=== PATIENT | female | born 1930 | race Two or more races ===

== ENCOUNTER 2016-10-28 11:59 | Inpatient (IN) | payer MEDICARE, OTHER ==
[~2016-10-28] VITALS: Ht 170.2 cm; Wt 88.5 kg
[~2016-10-28 11:59] MED LIST: DIGOXIN0.125 MG/2 ORAL; DILTIAZEM 24HR240 MG PO; HYDROCHLOROTHIA50 MG ORAL; IBUPROFEN400 MG ORAL; ISOSORBIDE DINI10 M1 PO; LEVOTHYROXINE100 MCG ORAL; OCUVITE1 EA ORAL; POTASSIUM CHLOR8 ME3 PO; PROCHLORPERAZINE5 MG ORAL; XANAX0.25 MG ORAL; XARELTO10 MG ORAL
[2016-10-28] MEDS ORDERED: cefTRIAXone 2 GM in NS 110 ML IVPB ONE (12:30)
[2016-10-28 12:40] VITALS: BP 174/64
[2016-10-28] MEDS ORDERED: Tubing IV Cassette IV ONE (13:01)
[2016-10-28] MEDS ORDERED: NS 0 ML IV ONE (13:01)
[2016-10-28] MEDS ORDERED: NS 110 ML ONE (13:04)
[2016-10-28 13:12] LABS: BASOPHILS % (AUTO) 0.8 % (0.0-2.0); EOSINOPHILS % (AUTO) 2.3 % (0.0-3.0); LYMPHOCYTES % (AUTO) 19.5 % (20.0-45.0); MEAN CORPUSCULAR HEMOGLOBIN 30.9 PG (27.0-31.0); MEAN CORPUSCULAR VOLUME 94 FL (80-99); MEAN PLATELET VOLUME 5.4 FL (6.5-10.1); MONOCYTES % (AUTO) 5.5 % (1.0-10.0); NEUTROPHILS % (AUTO) 71.9 % (45.0-75.0); PLATELET COUNT 400 K/UL (150-450); RED BLOOD COUNT 4.28 M/UL (4.20-5.40); WHITE BLOOD COUNT 8.4 K/UL (4.8-10.8)
[2016-10-28 13:23] LABS: PROTHROMBIN TIME 10.5 SEC (9.30-11.50)
[2016-10-28 13:27] LABS: ALANINE AMINOTRANSFERASE 13 U/L (3-33); ALBUMIN/GLOBULIN RATIO 1.1 (1.0-2.7); ANION GAP 18 (5-15); ASPARTATE AMINO TRANSFERASE 15 U/L (5-40); CALCIUM 9.3 mg/dL (8.6-10.2); CARBON DIOXIDE 22 mEQ/L (20-30); CHLORIDE 98 mEQ/L (98-107); CREATININE 1.1 mg/dL (0.5-0.9); HEMOLYSIS 3; POTASSIUM 4.1 mEQ/L (3.4-4.9); SODIUM 138 mEQ/L (135-145); TOTAL PROTEIN 8.2 g/dL (6.6-8.7); TROPONIN I < 0.30 ng/mL (<=0.30)
[2016-10-28 13:38] LABS: CKMB 10.4 ng/mL (< 3.8)
[2016-10-28] MEDS ORDERED: AMLODIPINE BESY10 MG ORAL (13:40)
[2016-10-28] MEDS ORDERED: FAMOTIDINE20 MG ORAL (13:40)
[2016-10-28] MEDS ORDERED: ATENOLOL25 MG ORAL (13:40)
[2016-10-28] MEDS ORDERED: FAMOTIDINE40 MG ORAL (13:40)
[2016-10-28] MEDS ORDERED: TRAMADOL HCL50 MG ORAL (13:40)
[2016-10-28] MEDS ORDERED: LORAZEPAM0.5 MG ORAL (13:40)
[2016-10-28] MEDS ORDERED: MECLIZINE HCL25 MG ORAL (13:40)
[2016-10-28] MEDS ORDERED: LASIX40 MG ORAL (13:40)
[2016-10-28] MEDS ORDERED: OCUVITE TABLET1 EAC1 ORAL (13:40)
[2016-10-28 13:45] VITALS: BP 160/67
--- NOTE | 2016-10-28 13:57 | Emergency Room Report ---
History of Present Illness General Chief Complaint: Vaginal Source: Family Member Present Illness HPI Patient is an 86-year-old female presented after increased vaginal discharge and bleeding. Patient gradual onset of symptoms over the past several weeks. The patient noted have increased foul smell. She had been noted to have small amount of bleeding. Patient had been taking Xarelto. She had not seen her primary care physician. Patient reportedly lives in a senior apartment. She is having some moderate difficulty breathing. Has reportedly intermittently takes digoxin. Allergies: Coded Allergies: No Known Allergies (Unverified , 07/21/15) Patient History Past Medical History: see triage record Reviewed Nursing Documentation: PMH: Agreed, PSxH: Agreed Nursing Documentation-PMH Past Medical History: No History, Except For Hx Cardiac Problems: No Hx Hypertension: Yes Hx Cancer: No Hx Gastrointestinal Problems: No Review of Systems All Other Systems: negative except mentioned in HPI Physical Exam Vital Signs Date Time Temp Pulse Resp B/P Pulse Ox O2 Delivery O2 Flow Rate FiO2 10/28/16 12:12 98.1 76 16 175/69 92 Room Air Sp02 EP Interpretation: reviewed, normal General Appearance: alert, GCS 15, moderate distress Head: atraumatic ENT: normal ENT inspection, hearing grossly normal, normal voice Neck: normal inspection, full range of motion, supple, no bony tend Respiratory: normal inspection, no wheezing, other - crackles bilateral bases Cardiovascular #1: regular rate, rhythm, no edema Gastrointestinal: normal inspection, normal bowel sounds, non tender, soft, no guarding, no hernia Genitourinary: other - marked foul smelling discharge, small vulvar lesion noted vulvar erythema Musculoskeletal: normal inspection, back normal, normal range of motion Neurologic: normal inspection, alert, responsive, speech normal Psychiatric: normal inspection, judgement/insight normal, mood/affect normal Skin: other - vulvar slight discharge, small pustular lesion near mons less than 1 cm Medical Decision Making Diagnostic Impression: Primary Impression: Congestive cardiac failure Additional Impression: Pelvic infection in female ER Course Patient presented for vaginal discharge. Differential diagnosis include was not limited to pelvic abscess, tumor, the pelvic inflammatory disease,Fourniere' s gangrene. Because of complexity of patient's case laboratory testing and imaging studies were ordered. I laboratory studies show normal white blood count. The patient's exam is consistent with a pelvic infection. This appears to require IV antibiotics I given the patient's comorbidity. Dr. Star Santamaria was contacted for inpatient management Labs Test 10/28/16 12:40 White Blood Count 8.4 K/UL (4.8-10.8) Red Blood Count 4.28 M/UL (4.20-5.40) Hemoglobin 13.2 G/DL (12.0-16.0) Hematocrit 40.0 % (37.0-47.0) Mean Corpuscular Volume 94 FL (80-99) Mean Corpuscular Hemoglobin 30.9 PG (27.0-31.0) Mean Corpuscular Hemoglobin Concent 33.0 G/DL (32.0-36.0) Red Cell Distribution Width 12.0 % (11.6-14.8) Platelet Count 400 K/UL (150-450) Mean Platelet Volume 5.4 FL (6.5-10.1) Neutrophils (%) (Auto) 71.9 % (45.0-75.0) Lymphocytes (%) (Auto) 19.5 % (20.0-45.0) Monocytes (%) (Auto) 5.5 % (1.0-10.0) Eosinophils (%) (Auto) 2.3 % (0.0-3.0) Basophils (%) (Auto) 0.8 % (0.0-2.0) Prothrombin Time 10.5 SEC (9.30-11.50) Prothromb Time International Ratio 1.0 (0.9-1.1) Activated Partial Thromboplast Time 29 SEC (23-33) Sodium Level 138 mEQ/L (135-145) Potassium Level 4.1 mEQ/L (3.4-4.9) Chloride Level 98 mEQ/L (98-107) Carbon Dioxide Level 22 mEQ/L (20-30) Anion Gap 18 (5-15) Blood Urea Nitrogen 23 mg/dL (7-23) Creatinine 1.1 mg/dL (0.5-0.9) Estimat Glomerular Filtration Rate mL/min (>60) Glucose Level 84 mg/dL (74-106) Lactic Acid Level 0.80 mmol/L (0.66-2.22) Calcium Level 9.3 mg/dL (8.6-10.2) Total Bilirubin 0.3 mg/dL (0.0-1.2) Aspartate Amino Transf (AST/SGOT) 15 U/L (5-40) Alanine Aminotransferase (ALT/SGPT) 13 U/L (3-33) Alkaline Phosphatase 76 U/L (35-104) Total Creatine Kinase 214 U/L (26-140) Creatine Kinase MB 10.4 ng/mL (< 3.8) Creatine Kinase MB Relative Index 4.8 Troponin I < 0.30 ng/mL (<=0.30) Pro-B-Type Natriuretic Peptide 503 pg/mL (0-450) Total Protein 8.2 g/dL (6.6-8.7) Albumin 4.4 g/dL (3.5-5.2) Globulin 3.8 g/dL Albumin/Globulin Ratio 1.1 (1.0-2.7) Chest X-Ray Diagnostic Results Chest X-Ray Ordered: Yes # of Views/Limited/Complete: 1 View Interpretation: no consolidation, no effusion, no pneumothorax, other - vascular congestion Indication: Chest Pain Impression: Other - mild cardiomegaly, vascular congestion Date Electronically Signed: Oct 28, 2016 Time Electronically Signed: 13:57 Last Vital Signs Date Time Temp Pulse Resp B/P Pulse Ox O2 Delivery O2 Flow Rate FiO2 10/28/16 13:45 67 20 160/67 95 Room Air 10/28/16 12:12 98.1 Status: unchanged Disposition: ADMITTED INPATIENT Condition: Serious Referrals: NON PHYSICIAN (PCP) Hernandez Masterson Oct 28, 2016 13:57
[2016-10-28] MEDS ORDERED: Diltiazem 25mg/5ml IV PRN (14:00)
[2016-10-28] MEDS ORDERED: Enalaprilat 2.5mg/2ml Inj IV PRN (14:00)
[2016-10-28] MEDS ORDERED: Ketorolac 30mg Inj IV PRN (14:00)
[2016-10-28] MEDS ORDERED: Morphine Sulfate 2mg/ml Inj IVP PRN (14:00)
[2016-10-28] MEDS ORDERED: Nitroglycerin Subl 0.4mg tab (Bottle Of 25) SL PRN (14:00)
[2016-10-28] MEDS ORDERED: Miralax 17gm pkt ORAL PRN (14:00)
[2016-10-28] MEDS ORDERED: DuoNeb 0.5-3(2.5)mg/3ml neb HHN PRN (14:00)
[2016-10-28 15:00] VITALS: BP 150/99
[2016-10-28] MEDS: Atenolol 25mg tab ORAL SCH (15:22)
[2016-10-28 16:00] VITALS: BP 149/68
--- NOTE | 2016-10-28 16:15 | Consultation ---
History of Present Illness General Date patient seen: Oct 28, 2016 Chief Complaint: Vaginal Present Illness HPI 86-year-old female with hx of htn presented after increased vaginal discharge and bleeding over the past several weeks. The patient noted have increased foul smell. Patient had been taking Xarelto. She is having some moderate difficulty breathing. Has reportedly intermittently takes digoxin. . Allergies: Coded Allergies: No Known Allergies (Unverified , 07/21/15) Medication History Scheduled Alprazolam* (Xanax*), 0.25 MG ORAL QHS, (Reported) Amlodipine Besylate* (Amlodipine Besylate*), 10 MG ORAL BID, (Reported) Atenolol* (Tenormin*), 25 MG ORAL DAILY, (Reported) Beta-Carotene(A) W-C & E/Min (Prosight Tablet), 1 TAB ORAL DAILY, (Reported) Digoxin* (Digoxin*), 0.125 MG ORAL DAILY, (Reported) Diltiazem Hcl (Diltiazem 24HR Cd), 240 MG PO DAILY, (Reported) Famotidine (Famotidine), 40 MG ORAL EVERY 12 HOURS, (Reported) Famotidine (Famotidine), 40 MG ORAL EVERY 12 HOURS, (Reported) Famotidine (Famotidine), 40 MG ORAL DAILY, (Reported) Furosemide* (Lasix*), 40 MG ORAL DAILY, (Reported) Hydrochlorothiazide* (Hydrochlorothiazide*), 50 MG ORAL DAILY, (Reported) Isosorbide Dinitrate (Isosorbide Dinitrate), 30 MG PO DAILY, (Reported) Levothyroxine Sodium* (Levothyroxine Sodium*), 100 MCG ORAL DAILY, (Reported) Lorazepam* (Lorazepam*), 0.5 MG ORAL HS, (Reported) Meclizine Hcl* (Meclizine*), 25 MG ORAL DAILY, (Reported) Potassium Chloride (Potassium Chloride), 8 MEQ PO DAILY, (Reported) Prochlorperazine Maleate* (Compazine*), 5 MG ORAL Q6H, (Reported) Rivaroxaban (Xarelto*), 10 MG ORAL DAILY, (Reported) Vit A,C & E/Lutein/Minerals (Ocuvite Tablet), 1 TAB ORAL BID, (Reported) Scheduled PRN Ibuprofen* (Motrin*), 200 MG ORAL FOUR TIMES A DAY PRN for Severe Pain (Pain Scale 7-10), (Reported) Tramadol Hcl* (Ultram*), 50 MG ORAL DAILY PRN for For Pain, (Reported) Patient History Healthcare decision maker Resuscitation status Advanced Directive on File Past Medical/Surgical History Past Medical/Surgical History: (1) Congestive cardiac failure (2) Hypertension (3) Pleural effusion Review of Systems All Other Systems: negative except mentioned in HPI Physical Exam General Appearance: cachetic Lines, tubes and drains: peripheral HEENT: normocephalic, anicteric Neck: non-tender, normal alignment Respiratory/Chest: chest wall non-tender, lungs clear, normal breath sounds Breasts: no masses Cardiovascular/Chest: normal peripheral pulses, regular rhythm Last 24 Hour Vital Signs Date Time Temp Pulse Resp B/P Pulse Ox O2 Delivery O2 Flow Rate FiO2 10/28/16 15:51 98.1 66 20 150/99 95 Room Air 10/28/16 15:22 66 150/99 10/28/16 15:00 66 20 150/99 95 Room Air 10/28/16 13:45 67 20 160/67 95 Room Air 10/28/16 12:40 72 20 174/64 96 Room Air 10/28/16 12:12 98.1 76 16 175/69 92 Room Air Laboratory Tests Test 10/28/16 12:40 White Blood Count 8.4 K/UL (4.8-10.8) Red Blood Count 4.28 M/UL (4.20-5.40) Hemoglobin 13.2 G/DL (12.0-16.0) Hematocrit 40.0 % (37.0-47.0) Mean Corpuscular Volume 94 FL (80-99) Mean Corpuscular Hemoglobin 30.9 PG (27.0-31.0) Mean Corpuscular Hemoglobin Concent 33.0 G/DL (32.0-36.0) Red Cell Distribution Width 12.0 % (11.6-14.8) Platelet Count 400 K/UL (150-450) Mean Platelet Volume 5.4 FL (6.5-10.1) L Neutrophils (%) (Auto) 71.9 % (45.0-75.0) Lymphocytes (%) (Auto) 19.5 % (20.0-45.0) L Monocytes (%) (Auto) 5.5 % (1.0-10.0) Eosinophils (%) (Auto) 2.3 % (0.0-3.0) Basophils (%) (Auto) 0.8 % (0.0-2.0) Prothrombin Time 10.5 SEC (9.30-11.50) Prothromb Time International Ratio 1.0 (0.9-1.1) Activated Partial Thromboplast Time 29 SEC (23-33) Sodium Level 138 mEQ/L (135-145) Potassium Level 4.1 mEQ/L (3.4-4.9) Chloride Level 98 mEQ/L (98-107) Carbon Dioxide Level 22 mEQ/L (20-30) Anion Gap 18 (5-15) H Blood Urea Nitrogen 23 mg/dL (7-23) Creatinine 1.1 mg/dL (0.5-0.9) H Estimat Glomerular Filtration Rate mL/min (>60) Glucose Level 84 mg/dL (74-106) Lactic Acid Level 0.80 mmol/L (0.66-2.22) Calcium Level 9.3 mg/dL (8.6-10.2) Total Bilirubin 0.3 mg/dL (0.0-1.2) Aspartate Amino Transf (AST/SGOT) 15 U/L (5-40) Alanine Aminotransferase (ALT/SGPT) 13 U/L (3-33) Alkaline Phosphatase 76 U/L (35-104) Total Creatine Kinase 214 U/L (26-140) H Creatine Kinase MB 10.4 ng/mL (< 3.8) H Creatine Kinase MB Relative Index 4.8 Troponin I < 0.30 ng/mL (<=0.30) Pro-B-Type Natriuretic Peptide 503 pg/mL (0-450) H Total Protein 8.2 g/dL (6.6-8.7) Albumin 4.4 g/dL (3.5-5.2) Globulin 3.8 g/dL Albumin/Globulin Ratio 1.1 (1.0-2.7) Height (Feet): 5 Height (Inches): 7.00 Weight (Pounds): 185 Medications Current Medications Medications (Trade) Dose Ordered Sig/Sarah Route PRN Reason Start Time Stop Time Status Last Admin Dose Admin Acetaminophen (Tylenol) 650 mg Q4H PRN ORAL FEVER 10/28/16 14:00 11/27/16 13:59 Albuterol/ Ipratropium (DuoNeb 0.5-3(2.5)mg/3ml) 3 ml Q4H PRN HHN Shortness of Breath 10/28/16 14:00 11/02/16 13:59 Alprazolam (Xanax) 0.25 mg QHS ORAL 10/28/16 21:00 11/04/16 20:59 Amlodipine Besylate (Norvasc) 10 mg Q12HR ORAL 10/28/16 21:00 11/27/16 20:59 Atenolol (Tenormin) 25 mg DAILY ORAL 10/28/16 15:00 11/27/16 14:59 10/28/16 15:22 Ceftriaxone Sodium/Dextrose (Rocephin/D5W) 55 ml @ 110 mls/hr Q24H IVPB 10/29/16 13:00 11/05/16 12:59 Digoxin (Lanoxin) 0.125 mg DAILY ORAL 10/29/16 09:00 11/28/16 08:59 Diltiazem HCl 10 mg 10 mg Q1H PRN IV heart rate more than 120, 10/28/16 14:00 11/27/16 13:59 Enalaprilat (Vasotec) 2.5 mg Q6H PRN IV sbp more than 160 10/28/16 14:00 11/27/16 13:59 Levothyroxine Sodium (Synthroid) 100 mcg ACBREAKFAST ORAL 10/29/16 06:30 11/28/16 06:29 Meclizine HCl (Antivert) 25 mg DAILY ORAL 10/29/16 09:00 11/28/16 08:59 Metronidazole 100 ml @ 100 mls/hr Q8HR IVPB 10/28/16 16:00 11/04/16 15:59 Morphine Sulfate (Morphine Sulfate) 2 mg Q4H PRN IVP severe Pain (Pain Scale 7-10) 10/28/16 14:00 11/04/16 13:59 Nitroglycerin (Ntg) 0.4 mg Q5M PRN SL Prn Chest Pain 10/28/16 14:00 11/27/16 13:59 Ondansetron HCl (Zofran) 4 mg Q6H PRN IVP Nausea & Vomiting 10/28/16 14:00 11/27/16 13:59 Pantoprazole (Protonix) 40 mg DAILY ORAL 10/29/16 09:00 11/28/16 08:59 Polyethylene Glycol (Miralax) 17 gm DAILYPRN PRN ORAL Constipation 10/28/16 14:00 11/27/16 13:59 Assessment/Plan Problem List: (1) Congestive cardiac failure ICD Codes: I50.9 - Heart failure, unspecified SNOMED: 30347149 (2) Vaginal bleeding ICD Codes: N93.9 - Abnormal uterine and vaginal bleeding, unspecified SNOMED: 982018553, 106700972 (3) Vaginitis ICD Codes: N76.0 - Acute vaginitis SNOMED: 09703323 (4) Pelvic infection in female ICD Codes: N73.9 - Female pelvic inflammatory disease, unspecified SNOMED: 201867506, 18319506 (5) Hypertension ICD Codes: I10 - Essential (primary) hypertension SNOMED: 51489725 Assessment/Plan broad spectrum antibiotics check cultures cardiac evaluation hold Xarelto dvt prophylaxis social service consult MARA DANIEL Oct 28, 2016 16:14
[2016-10-28] MEDS: metroNIDAZOLE 500mg 100 ML IVPB SCH ×2 (16:33→21:54)
[2016-10-28] MEDS ORDERED: COLACE100 MG/10 ORAL (17:13)
[2016-10-28 20:00] VITALS: BP 140/86
[2016-10-28] MEDS ORDERED: Heparin 5000 units/ml inj SUBQ SCH (21:00)
[2016-10-28] MEDS: ALPRAZolam 0.25mg tab ORAL SCH (21:22)
[2016-10-29] VITALS: BP 121/55
--- NOTE | 2016-10-29 03:00 | History and Physical Report ---
DATE OF ADMISSION: 10/28/2016 CHIEF COMPLAINT: The patient is an 86-year-old white female, presents with chief complaint of vaginal bleeding. HISTORY OF PRESENT ILLNESS: Began few days prior to admission. The patient is on Xarelto at home. The patient began to notice vaginal bleeding. The patient has been taking Xarelto. The patient presented to [facility] emergency room. The patient was admitted for vaginal bleeding to rule out uterine cancer. PAST MEDICAL HISTORY: Significant for, 1. Hypertension. 2. Hypothyroidism. PAST SURGICAL HISTORY: Significant for, 1. Cholecystectomy. 2. Right knee surgery. CURRENT MEDICATIONS: 1. Alprazolam 0.25 mg one tablet p.o. nightly. 2. Amlodipine 10 mg one tablet p.o. daily. 3. Atenolol 25 mg one tablet p.o. daily. 4. Digoxin 0.125 mg one tablet p.o. daily. 5. Diltiazem 240 mg one tablet p.o. daily. 6. Pepcid 40 mg one tablet p.o. twice daily. 7. Lasix 40 mg one tablet p.o. daily. 8. Hydrochlorothiazide 50 mg one tablet p.o. daily. 9. Ibuprofen 40 mg one tablet p.o. every 6 hours p.r.n. 10. Levoxyl 100 mcg one tablet p.o. daily. 11. Potassium 8 mEq one tablet p.o. daily. 12. Compazine 5 mg one tablet p.o. q.6 hours p.r.n. 13. Xarelto 10 mg one tablet p.o. daily. 14. Tramadol 50 mg one tablet p.o. p.r.n. ALLERGIES: No known drug allergies. SOCIAL HISTORY: The patient is single and lives in a senior housing apartment. The patient denies tobacco or alcohol use. REVIEW OF SYSTEMS: Constitutional: The patient denies weight loss or weight gain. The patient denies fevers or chills. HEENT: The patient denies ear or throat pain. Cardiovascular: The patient denies palpitations or chest pain. Chest: The patient denies wheeze or shortness of breath. Abdomen: The patient denies nausea, vomiting, or constipation. Genitourinary: The patient complains of vaginal bleeding as above. The patient denies dysuria or increased frequency of urination. Neuromuscular: The patient denies seizures or generalized weakness. PHYSICAL EXAMINATION: VITAL SIGNS: Temperature 98.1 degrees, respirations 20, pulse 66, and blood pressure 150/99. GENERAL: The patient is well developed and well nourished white female, in no apparent distress. HEENT: Eyes, pupils are equal and responsive to light and accommodation. Extraocular movements are intact. NECK: Supple without lymphadenopathy. CHEST: Lungs are clear to auscultation bilaterally without wheezes or rales. CARDIOVASCULAR: Regular rate. S1 and S2 normal without murmurs, rubs, or gallops. ABDOMEN: Soft, nontender, and nondistended. Positive bowel sounds. No evidence of hepatosplenomegaly. Currently, no rebound or guarding. EXTREMITIES: Negative for clubbing, cyanosis, or edema. RECTAL/GENITAL: Refused. NEUROLOGIC: Cranial nerves II through XII are grossly intact without focal deficits. Motor strength is 5/5 bilaterally. Deep tendon reflexes are 2+ plantar. LABORATORY STUDIES: WBC 8.4, hemoglobin 13.2, hematocrit 40.0, and platelets 400,000. Sodium 138, potassium 4.1, chloride 98, CO2 22, BUN 23, creatinine 1.1, and glucose 84. Troponin less than 0.3. ASSESSMENT: This is an 86-year-old white female, 1. Menorrhagia, postmenopausal. 2. Hypertension. 3. Hypothyroidism. 4. History of diverticulosis. TREATMENT: 1. Vaginal bleeding/postmenopausal bleeding. A CT of the abdomen and pelvis is pending. The patient may have uterine fibroid versus uterine cancer. Oncology consultation has been obtained with . . 2. Hypertension. Continue amlodipine as above. 3. Hypothyroidism. Continue Levoxyl as above. 4. Diverticulosis. Wayne Chua M.D. DR: Lavinia JOB#: [id number] CC:
[2016-10-29 04:00] VITALS: BP 156/67
[2016-10-29] MEDS: metroNIDAZOLE 500mg 100 ML IVPB SCH ×3 (05:51→22:22)
[2016-10-29 07:41] LABS: BASOPHILS % (AUTO) 0.8 % (0.0-2.0); EOSINOPHILS % (AUTO) 3.5 % (0.0-3.0); MEAN CORPUSCULAR HEMOGLOBIN 30.9 PG (27.0-31.0); MEAN CORPUSCULAR HGB CONC 33.3 G/DL (32.0-36.0); MEAN CORPUSCULAR VOLUME 93 FL (80-99); MEAN PLATELET VOLUME 5.7 FL (6.5-10.1); MONOCYTES % (AUTO) 6.7 % (1.0-10.0); PLATELET COUNT 363 K/UL (150-450); RED BLOOD COUNT 3.96 M/UL (4.20-5.40); RED CELL DISTRIBUTION WIDTH 11.8 % (11.6-14.8); WHITE BLOOD COUNT 7.7 K/UL (4.8-10.8)
[2016-10-29 07:50] VITALS: BP 153/70
[2016-10-29 07:57] LABS: ANION GAP 18 (5-15); CALCIUM 9.6 mg/dL (8.6-10.2); CARBON DIOXIDE 19 mEQ/L (20-30); CHLORIDE 106 mEQ/L (98-107); HEMOLYSIS 5; POTASSIUM 4.4 mEQ/L (3.4-4.9); SODIUM 143 mEQ/L (135-145)
[2016-10-29 08:04] LABS: PROTHROMBIN TIME 10.8 SEC (9.30-11.50)
[2016-10-29 08:10] LABS: TROPONIN I < 0.30 ng/mL (<=0.30)
[2016-10-29 08:14] LABS: CHOLESTEROL/HDL RATIO 5.6 (3.3-4.4); CRP QUANT 1.8 mg/dL (< 0.5)
[2016-10-29 08:17] LABS: THYROID STIMULATING HORMONE 6.23 uIU/mL (0.300-4.500)
[2016-10-29] MEDS: Atenolol 25mg tab ORAL SCH (08:26)
[2016-10-29] MEDS: Meclizine 25mg tab ORAL SCH (08:26)
[2016-10-29] MEDS: Digoxin Elixir 0.125mg ORAL SCH (08:26)
[2016-10-29] MEDS ORDERED: Aspirin Baby 81mg ORAL SCH (09:00)
[2016-10-29] MEDS ORDERED: Xarelto 10mg tab ORAL SCH (09:00)
[2016-10-29] MEDS ORDERED: Tubing IV Secondary IV ONE (11:02)
[2016-10-29] MEDS ORDERED: NS 275ml ONE (11:02)
[2016-10-29 11:34] VITALS: BP 145/75
[2016-10-29] MEDS: cefTRIAXone 1 GM in D5W 55 ML IVPB SCH (12:00)
--- NOTE | 2016-10-29 12:34 | Internal Med Progress Note ---
Subjective Date of Service: Oct 29, 2016 Physician Name JohnsonWayne Attending Physician Star Santamaria MD Current Medications Medications (Trade) Dose Ordered Sig/Sarah Route PRN Reason Start Time Stop Time Status Last Admin Dose Admin Acetaminophen (Tylenol) 650 mg Q4H PRN ORAL FEVER 10/28/16 14:00 11/27/16 13:59 Albuterol/ Ipratropium (DuoNeb 0.5-3(2.5)mg/3ml) 3 ml Q4H PRN HHN Shortness of Breath 10/28/16 14:00 11/02/16 13:59 Alprazolam (Xanax) 0.25 mg QHS ORAL 10/28/16 21:00 11/04/16 20:59 10/28/16 21:22 Amlodipine Besylate (Norvasc) 10 mg Q12HR ORAL 10/28/16 21:00 11/27/16 20:59 10/29/16 08:26 Atenolol (Tenormin) 25 mg DAILY ORAL 10/28/16 15:00 11/27/16 14:59 10/29/16 08:26 Ceftriaxone Sodium/Dextrose (Rocephin/D5W) 55 ml @ 110 mls/hr Q24H IVPB 10/29/16 13:00 11/05/16 12:59 10/29/16 12:00 Digoxin (Lanoxin) 0.125 mg DAILY ORAL 10/29/16 09:00 11/28/16 08:59 10/29/16 08:26 Diltiazem HCl 10 mg 10 mg Q1H PRN IV heart rate more than 120, 10/28/16 14:00 11/27/16 13:59 Enalaprilat (Vasotec) 2.5 mg Q6H PRN IV sbp more than 160 10/28/16 14:00 11/27/16 13:59 Levothyroxine Sodium (Synthroid) 100 mcg ACBREAKFAST ORAL 10/29/16 06:30 11/28/16 06:29 10/29/16 05:57 Meclizine HCl (Antivert) 25 mg DAILY ORAL 10/29/16 09:00 11/28/16 08:59 10/29/16 08:26 Metronidazole 100 ml @ 100 mls/hr Q8HR IVPB 10/28/16 16:00 11/04/16 15:59 10/29/16 05:51 Morphine Sulfate (Morphine Sulfate) 2 mg Q4H PRN IVP severe Pain (Pain Scale 7-10) 10/28/16 14:00 11/04/16 13:59 Nitroglycerin (Ntg) 0.4 mg Q5M PRN SL Prn Chest Pain 10/28/16 14:00 11/27/16 13:59 Ondansetron HCl (Zofran) 4 mg Q6H PRN IVP Nausea & Vomiting 10/28/16 14:00 11/27/16 13:59 Pantoprazole (Protonix) 40 mg DAILY ORAL 10/29/16 09:00 11/28/16 08:59 10/29/16 08:26 Polyethylene Glycol (Miralax) 17 gm DAILYPRN PRN ORAL Constipation 10/28/16 14:00 11/27/16 13:59 Allergies: Coded Allergies: No Known Allergies (Unverified , 07/21/15) ROS Limited/Unobtainable: Yes Constitutional: Reports: no symptoms HEENT: Reports: no symptoms Cardiovascular: Reports: no symptoms Respiratory: Reports: no symptoms Gastrointestinal/Abdominal: Reports: no symptoms Genitourinary: Reports: no symptoms Neurologic/Psychiatric: Reports: no symptoms Subjective 86 YO F admitted with post - menopausal vaginal bleeding. Await CT abdomen and pelvis result. Await FUR GRADER consult. Cover for Int Med-Dr Santamaria. Objective Last Vital Signs Date Time Temp Pulse Resp B/P Pulse Ox O2 Delivery O2 Flow Rate FiO2 10/29/16 11:34 98.1 62 20 145/75 96 Room Air 10/29/16 07:52 2.0 28 Laboratory Tests Test 10/28/16 12:40 10/29/16 06:10 White Blood Count 8.4 K/UL (4.8-10.8) 7.7 K/UL (4.8-10.8) Red Blood Count 4.28 M/UL (4.20-5.40) 3.96 M/UL (4.20-5.40) L Hemoglobin 13.2 G/DL (12.0-16.0) 12.2 G/DL (12.0-16.0) Hematocrit 40.0 % (37.0-47.0) 36.8 % (37.0-47.0) L Mean Corpuscular Volume 94 FL (80-99) 93 FL (80-99) Mean Corpuscular Hemoglobin 30.9 PG (27.0-31.0) 30.9 PG (27.0-31.0) Mean Corpuscular Hemoglobin Concent 33.0 G/DL (32.0-36.0) 33.3 G/DL (32.0-36.0) Red Cell Distribution Width 12.0 % (11.6-14.8) 11.8 % (11.6-14.8) Platelet Count 400 K/UL (150-450) 363 K/UL (150-450) Mean Platelet Volume 5.4 FL (6.5-10.1) L 5.7 FL (6.5-10.1) L Neutrophils (%) (Auto) 71.9 % (45.0-75.0) 64.0 % (45.0-75.0) Lymphocytes (%) (Auto) 19.5 % (20.0-45.0) L 25.0 % (20.0-45.0) Monocytes (%) (Auto) 5.5 % (1.0-10.0) 6.7 % (1.0-10.0) Eosinophils (%) (Auto) 2.3 % (0.0-3.0) 3.5 % (0.0-3.0) H Basophils (%) (Auto) 0.8 % (0.0-2.0) 0.8 % (0.0-2.0) Prothrombin Time 10.5 SEC (9.30-11.50) 10.8 SEC (9.30-11.50) Prothromb Time International Ratio 1.0 (0.9-1.1) 1.0 (0.9-1.1) Activated Partial Thromboplast Time 29 SEC (23-33) 29 SEC (23-33) Sodium Level 138 mEQ/L (135-145) 143 mEQ/L (135-145) Potassium Level 4.1 mEQ/L (3.4-4.9) 4.4 mEQ/L (3.4-4.9) Chloride Level 98 mEQ/L (98-107) 106 mEQ/L (98-107) Carbon Dioxide Level 22 mEQ/L (20-30) 19 mEQ/L (20-30) L Anion Gap 18 (5-15) H 18 (5-15) H Blood Urea Nitrogen 23 mg/dL (7-23) 23 mg/dL (7-23) Creatinine 1.1 mg/dL (0.5-0.9) H 1.0 mg/dL (0.5-0.9) H Estimat Glomerular Filtration Rate mL/min (>60) mL/min (>60) Glucose Level 84 mg/dL (74-106) 102 mg/dL (74-106) Lactic Acid Level 0.80 mmol/L (0.66-2.22) Calcium Level 9.3 mg/dL (8.6-10.2) 9.6 mg/dL (8.6-10.2) Total Bilirubin 0.3 mg/dL (0.0-1.2) Aspartate Amino Transf (AST/SGOT) 15 U/L (5-40) Alanine Aminotransferase (ALT/SGPT) 13 U/L (3-33) Alkaline Phosphatase 76 U/L (35-104) Total Creatine Kinase 214 U/L (26-140) H Creatine Kinase MB 10.4 ng/mL (< 3.8) H Creatine Kinase MB Relative Index 4.8 Troponin I < 0.30 ng/mL (<=0.30) < 0.30 ng/mL (<=0.30) Pro-B-Type Natriuretic Peptide 503 pg/mL (0-450) H Total Protein 8.2 g/dL (6.6-8.7) Albumin 4.4 g/dL (3.5-5.2) Globulin 3.8 g/dL Albumin/Globulin Ratio 1.1 (1.0-2.7) C-Reactive Protein, Quantitative 1.8 mg/dL (< 0.5) H Triglycerides Level 73 mg/dL (< 150) Cholesterol Level 185 mg/dL (< 200) LDL Cholesterol 137 mg/dL (60-99) H HDL Cholesterol 33 mg/dL (> 60) Cholesterol/HDL Ratio 5.6 (3.3-4.4) H Thyroid Stimulating Hormone (TSH) 6.230 uIU/mL (0.300-4.500) Intake and Output 10/28/16 10/29/16 19:00 07:00 Intake Total 210 ml 300 ml Balance 210 ml 300 ml Intake Oral 100 ml IV Total 210 ml 200 ml # Voids 1 Objective General: alert, cooperative, no distress, appears stated age Head: normocephalic, without obvious abnormality, atraumatic Eyes: conjunctivae/corneas clear. PERRL, EOM's intact Throat: lips, mucosa, and tongue normal. MMM Neck: supple, symmetrical, trachea midline, and no JVD Lungs: clear to auscultation bilaterally Heart: regular rate and rhythm, S1, S2 normal, no murmur, click, rub or gallop Abdomen: soft, non-tender, non-distended, bowel sounds normal; no masses or organomegaly Extremities: extremities normal, atraumatic, no cyanosis or edema Pulses: 2+ and symmetric Skin: skin color, texture, turgor normal; no rashes or lesions Neurologic: grossly normal, no focal deficits Assessment/Plan Problem List: (1) Hypothyroidism Assessment & Plan: Cont levoxyl. (2) Vaginal bleeding Assessment & Plan: Postmenopausal. Await FUR GRADER consult and CT abdomen/pelvis. (3) Hypertension Assessment & Plan: Cont amlodipine and atenolol. (4) Vaginitis (5) UTI (urinary tract infection) Assessment & Plan: continue ceftriaxone. (6) Anemia Assessment & Plan: Hold 2 units PRBC for possible transfusion. Status: not improved WAYNE JOHNSON Oct 29, 2016 12:34
--- NOTE | 2016-10-29 14:45 | Pulmonology Progress Note ---
Assessment/Plan Problems: (1) Congestive cardiac failure (2) Vaginal bleeding (3) Vaginitis (4) Pelvic infection in female (5) Hypertension Assessment/Plan improving check cultures check echo Tsh mildly elevated, Endo consult ID to decide about abx pt/ot social service consult to evaluate home safety. Subjective ROS Limited/Unobtainable: No Interval Events: no new complains, eating well Allergies: Coded Allergies: No Known Allergies (Unverified , 07/21/15) Objective Last 24 Hour Vital Signs Date Time Temp Pulse Resp B/P Pulse Ox O2 Delivery O2 Flow Rate FiO2 10/29/16 11:34 98.1 62 20 145/75 96 Room Air 10/29/16 11:34 59 10/29/16 08:26 65 10/29/16 08:26 65 153/70 10/29/16 08:26 65 153/70 10/29/16 07:52 96 Nasal Cannula 2.0 28 10/29/16 07:50 65 20 Nasal Cannula 2.0 28 10/29/16 07:50 97.9 72 18 153/70 97 Room Air 10/29/16 07:47 75 10/29/16 04:00 97.6 83 20 156/67 97 Room Air 10/29/16 04:00 82 10/29/16 00:00 97.9 53 19 121/55 96 Room Air 10/29/16 00:00 54 10/28/16 21:23 93 140/86 10/28/16 20:00 79 10/28/16 20:00 98.0 93 20 140/86 96 Room Air 10/28/16 19:26 88 20 Room Air 10/28/16 16:00 97.7 71 18 149/68 Nasal Cannula 2.0 91 10/28/16 16:00 70 10/28/16 15:51 98.1 66 20 150/99 95 Room Air 10/28/16 15:22 66 150/99 10/28/16 15:00 66 20 150/99 95 Room Air Intake and Output 10/28/16 10/29/16 19:00 07:00 Intake Total 210 ml 300 ml Balance 210 ml 300 ml Intake Oral 100 ml IV Total 210 ml 200 ml # Voids 1 General Appearance: WD/WN HEENT: normocephalic, atraumatic Respiratory/Chest: chest wall non-tender, lungs clear Cardiovascular: normal peripheral pulses, normal rate Abdomen: normal bowel sounds, soft, non tender Extremities: no cyanosis Skin: no rash 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, no motor/sensory deficits Lymphatic: no neck adenopathy Laboratory Tests 10/29/16 06:10: White Blood Count 7.7, Red Blood Count 3.96L, Hemoglobin 12.2, Hematocrit 36.8L , Mean Corpuscular Volume 93, Mean Corpuscular Hemoglobin 30.9, Mean Corpuscular Hemoglobin Concent 33.3, Red Cell Distribution Width 11.8, Platelet Count 363, Mean Platelet Volume 5.7L, Neutrophils (%) (Auto) 64.0, Lymphocytes ( %) (Auto) 25.0, Monocytes (%) (Auto) 6.7, Eosinophils (%) (Auto) 3.5H, Basophils (%) (Auto) 0.8, Prothrombin Time 10.8, Prothromb Time International Ratio 1.0, Activated Partial Thromboplast Time 29, Sodium Level 143, Potassium Level 4.4, Chloride Level 106, Carbon Dioxide Level 19L, Anion Gap 18H, Blood Urea Nitrogen 23, Creatinine 1.0H, Estimat Glomerular Filtration Rate , Glucose Level 102, Calcium Level 9.6, Troponin I < 0.30, C-Reactive Protein, Quantitative 1.8H, Triglycerides Level 73, Cholesterol Level 185, LDL Cholesterol 137H, HDL Cholesterol 33, Cholesterol/HDL Ratio 5.6H, Thyroid Stimulating Hormone (TSH) 6.230H Current Medications Medications (Trade) Dose Ordered Sig/Sarah Route PRN Reason Start Time Stop Time Status Last Admin Dose Admin Acetaminophen (Tylenol) 650 mg Q4H PRN ORAL FEVER 10/28/16 14:00 11/27/16 13:59 Albuterol/ Ipratropium (DuoNeb 0.5-3(2.5)mg/3ml) 3 ml Q4H PRN HHN Shortness of Breath 10/28/16 14:00 11/02/16 13:59 Alprazolam (Xanax) 0.25 mg QHS ORAL 10/28/16 21:00 11/04/16 20:59 10/28/16 21:22 Amlodipine Besylate (Norvasc) 10 mg Q12HR ORAL 10/28/16 21:00 11/27/16 20:59 10/29/16 08:26 Atenolol (Tenormin) 25 mg DAILY ORAL 10/28/16 15:00 11/27/16 14:59 10/29/16 08:26 Ceftriaxone Sodium/Dextrose (Rocephin/D5W) 55 ml @ 110 mls/hr Q24H IVPB 10/29/16 13:00 11/05/16 12:59 10/29/16 12:00 Digoxin (Lanoxin) 0.125 mg DAILY ORAL 10/29/16 09:00 11/28/16 08:59 10/29/16 08:26 Diltiazem HCl 10 mg 10 mg Q1H PRN IV heart rate more than 120, 10/28/16 14:00 11/27/16 13:59 Enalaprilat (Vasotec) 2.5 mg Q6H PRN IV sbp more than 160 10/28/16 14:00 11/27/16 13:59 Levothyroxine Sodium (Synthroid) 100 mcg ACBREAKFAST ORAL 10/29/16 06:30 11/28/16 06:29 10/29/16 05:57 Meclizine HCl (Antivert) 25 mg DAILY ORAL 10/29/16 09:00 11/28/16 08:59 10/29/16 08:26 Metronidazole 100 ml @ 100 mls/hr Q8HR IVPB 10/28/16 16:00 11/04/16 15:59 10/29/16 13:10 Morphine Sulfate (Morphine Sulfate) 2 mg Q4H PRN IVP severe Pain (Pain Scale 7-10) 10/28/16 14:00 11/04/16 13:59 Nitroglycerin (Ntg) 0.4 mg Q5M PRN SL Prn Chest Pain 10/28/16 14:00 11/27/16 13:59 Ondansetron HCl (Zofran) 4 mg Q6H PRN IVP Nausea & Vomiting 10/28/16 14:00 11/27/16 13:59 Pantoprazole (Protonix) 40 mg DAILY ORAL 10/29/16 09:00 11/28/16 08:59 10/29/16 08:26 Polyethylene Glycol (Miralax) 17 gm DAILYPRN PRN ORAL Constipation 10/28/16 14:00 11/27/16 13:59 MARA DANIEL Oct 29, 2016 14:45
[2016-10-29 15:25] VITALS: BP 132/62
--- NOTE | 2016-10-29 19:40 | Cardiology Progress Note ---
Assessment/Plan Assessment/Plan vag bleedign uti htn multiple fall no chf at this time not clear to me whys she is on anticoagualtion pt indicates has falledn multiple time as question if anticoag will be safe buttermaker continuous churn samuel dose of anticoaugion is nto one routinely used for cardiac condition [id number] Objective Last 24 Hour Vital Signs Date Time Temp Pulse Resp B/P Pulse Ox O2 Delivery O2 Flow Rate FiO2 10/29/16 15:57 62 10/29/16 15:25 98.1 64 18 132/62 96 Room Air 10/29/16 11:34 98.1 62 20 145/75 96 Room Air 10/29/16 11:34 59 10/29/16 08:26 65 10/29/16 08:26 65 153/70 10/29/16 08:26 65 153/70 10/29/16 07:52 96 Nasal Cannula 2.0 28 10/29/16 07:50 65 20 Nasal Cannula 2.0 28 10/29/16 07:50 97.9 72 18 153/70 97 Room Air 10/29/16 07:47 75 10/29/16 04:00 97.6 83 20 156/67 97 Room Air 10/29/16 04:00 82 10/29/16 00:00 97.9 53 19 121/55 96 Room Air 10/29/16 00:00 54 10/28/16 21:23 93 140/86 10/28/16 20:00 79 10/28/16 20:00 98.0 93 20 140/86 96 Room Air Intake and Output 10/28/16 10/29/16 19:00 07:00 Intake Total 210 ml 300 ml Balance 210 ml 300 ml Intake Oral 100 ml IV Total 210 ml 200 ml # Voids 1 Laboratory Tests Test 10/29/16 06:10 White Blood Count 7.7 K/UL (4.8-10.8) Red Blood Count 3.96 M/UL (4.20-5.40) L Hemoglobin 12.2 G/DL (12.0-16.0) Hematocrit 36.8 % (37.0-47.0) L Mean Corpuscular Volume 93 FL (80-99) Mean Corpuscular Hemoglobin 30.9 PG (27.0-31.0) Mean Corpuscular Hemoglobin Concent 33.3 G/DL (32.0-36.0) Red Cell Distribution Width 11.8 % (11.6-14.8) Platelet Count 363 K/UL (150-450) Mean Platelet Volume 5.7 FL (6.5-10.1) L Neutrophils (%) (Auto) 64.0 % (45.0-75.0) Lymphocytes (%) (Auto) 25.0 % (20.0-45.0) Monocytes (%) (Auto) 6.7 % (1.0-10.0) Eosinophils (%) (Auto) 3.5 % (0.0-3.0) H Basophils (%) (Auto) 0.8 % (0.0-2.0) Prothrombin Time 10.8 SEC (9.30-11.50) Prothromb Time International Ratio 1.0 (0.9-1.1) Activated Partial Thromboplast Time 29 SEC (23-33) Sodium Level 143 mEQ/L (135-145) Potassium Level 4.4 mEQ/L (3.4-4.9) Chloride Level 106 mEQ/L (98-107) Carbon Dioxide Level 19 mEQ/L (20-30) L Anion Gap 18 (5-15) H Blood Urea Nitrogen 23 mg/dL (7-23) Creatinine 1.0 mg/dL (0.5-0.9) H Estimat Glomerular Filtration Rate mL/min (>60) Glucose Level 102 mg/dL (74-106) Calcium Level 9.6 mg/dL (8.6-10.2) Troponin I < 0.30 ng/mL (<=0.30) C-Reactive Protein, Quantitative 1.8 mg/dL (< 0.5) H Triglycerides Level 73 mg/dL (< 150) Cholesterol Level 185 mg/dL (< 200) LDL Cholesterol 137 mg/dL (60-99) H HDL Cholesterol 33 mg/dL (> 60) Cholesterol/HDL Ratio 5.6 (3.3-4.4) H Thyroid Stimulating Hormone (TSH) 6.230 uIU/mL (0.300-4.500) ANSHU BHATT 12, 2017 19:40
[2016-10-29 20:07] VITALS: BP 138/67
[2016-10-29] MEDS: ALPRAZolam 0.25mg tab ORAL SCH (22:22)
[2016-10-30 00:03] VITALS: BP 139/81
--- NOTE | 2016-10-30 03:30 | Consultation ---
DATE OF CONSULTATION: 10/29/2016 CONSULTING PHYSICIAN: Brenden Dye M.D. REFERRING PHYSICIAN: Davi Segundo M.D. and Star Santamaria M.D. REASON FOR REFERRAL: Possible congestive heart failure. HISTORY OF PRESENT ILLNESS: This is an elderly female, who is transferred from a [facility] facility for various reasons, one of her symptoms with moderate difficulty breathing. She does not have any chest pain at this time. She uses one pillow at night. There is no episode of PND. She has occasional dizziness on standing. She has multiple falls and she has occasional palpitation. No pain, pressure, or tightness in her chest. PAST MEDICAL HISTORY: Positive for history of prior hospitalization here at [facility] with the diagnosis of abdominal pain secondary to diverticulosis, history of hypertension, history of bilateral pleural effusions and she does endorse having had a history of heart attack. No cancer. She has several strokes previously that she admits to. No kidney or liver problems. She does have history of thyroid problems. ALLERGIES: She is not allergic to any medications. SOCIAL HISTORY: She does not smoke or drink alcoholic beverages. She has one daughter who is living with her granddaughter because of a new baby in the family, and she is in a [facility], that is where she lives. REVIEW OF SYSTEMS: Gastrointestinal: Positive for nausea and vomiting early in morning and constipation. Genitourinary: She has some bloody urine. Pulmonary: No significant cough or wheezing. Constitutional: She had some chills at night. Neurologic: She had multiple falls. PHYSICAL EXAMINATION: GENERAL: Pleasant elderly female, in no apparent respiratory distress. NECK: Supple. No jugular venous distention. No abdominojugular reflux noted. LUNGS: Relatively clear to auscultation and percussion. CARDIAC: S1 is normal. S2 is normal. Regular rate and rhythm. No RV lifts, heaves, or thrills. No gallops noted. ABDOMEN: Abdomen is soft and nontender. Positive bowel sounds. EXTREMITIES: There is no clubbing, cyanosis, nor is there any edema. NEUROLOGICAL: She is awake, alert, responsive, in no apparent distress. LABORATORY AND DIAGNOSTIC DATA: Venous duplex study of the lower extremities was negative. White count 7.7, hemoglobin 12.2, and platelet count of 263,000. Sodium is 142, potassium 4.4, chloride 106, bicarbonate of 19, BUN of 22, creatinine 1.0, glucose of 106, calcium is 9.6. Troponin on two separate occasions were negative. ProBNP of only 503. Total cholesterol 185 with a LDL of 137, HDL of 33, TSH is 6.2, INR is 1.0, PTT of 29. Urinalysis shows positive nitrites, 4+ leukocyte esterase, 2-4 WBCs. She has had an echocardiogram. Preliminary report shows ejection fraction at 55%, technically difficulty study. No significant valvular regurgitation. There is normal left ventricular diastolic function. Electrocardiogram shows sinus rhythm, normal QRS axis, and nonspecific T-wave changes. ASSESSMENT: 1. Dysuria, possible urinary tract infection. 2. Vaginal bleeding. 3. Hypertension. 4. Hypothyroidism. 5. History of diverticulosis. PLAN: There is a history that patient is actually on Xarelto. The etiology of this medications may be not known to me. I am unable to find any records from [facility] where she was admitted in prior stage, so she appears to be on diuretics as well as medications for blood pressure including beta-blockers and diltiazem as well as eye surgery and Xarelto of only 10 mg daily. The dose is not usually used for cardiac conditions, it is possibly used for deep venous thrombosis. Nevertheless, not clear to me why the indication of anticoagulation is for. She does not have any signs or symptoms of congestive heart failure at the present time. She should be continued on her usual dose of medications and she appears to be rather comfortable. The etiology of her vaginal bleeding is that has been going on. She has been looked after by the Dr. Chua. She will have repeat EKGs in the morning and will review her final echocardiogram report. Indication for anticoagulation is unclear. The patient endorses that she has had 292 falls and I wonder whether she needs to be on anticoagulation at all. Brenden Dye M.D. DR: MAU JOB#: [id number] CC:
[2016-10-30 03:49] VITALS: BP 143/70
[2016-10-30] MEDS: metroNIDAZOLE 500mg 100 ML IVPB SCH (05:48)
[2016-10-30 07:22] LABS: BASOPHILS % (AUTO) 0.8 % (0.0-2.0); LYMPHOCYTES % (AUTO) 21.8 % (20.0-45.0); MEAN CORPUSCULAR HGB CONC 33.1 G/DL (32.0-36.0); MEAN CORPUSCULAR VOLUME 94 FL (80-99); MEAN PLATELET VOLUME 5.7 FL (6.5-10.1); NEUTROPHILS % (AUTO) 66.4 % (45.0-75.0); PLATELET COUNT 341 K/UL (150-450); RED BLOOD COUNT 3.95 M/UL (4.20-5.40); WHITE BLOOD COUNT 7.5 K/UL (4.8-10.8)
[2016-10-30 07:52] LABS: ANION GAP 16 (5-15); CALCIUM 8.9 mg/dL (8.6-10.2); CARBON DIOXIDE 20 mEQ/L (20-30); CHLORIDE 106 mEQ/L (98-107); CREATININE 1.1 mg/dL (0.5-0.9); HEMOLYSIS 8; POTASSIUM 4.3 mEQ/L (3.4-4.9); SODIUM 142 mEQ/L (135-145)
[2016-10-30 07:56] LABS: TROPONIN I < 0.30 ng/mL (<=0.30)
[2016-10-30 08:00] VITALS: BP 132/86
--- NOTE | 2016-10-30 08:07 | Cardiology Report ---
APPROVED REPORT EXAM: Two-dimensional and M-mode echocardiogram with Doppler and color Doppler. INDICATION Left Ventricular Function M-Mode DIMENSIONS IVSd1.0 (0.7-1.1cm)Left Atrium (MM)3.4 (1.6-4.0cm) LVDd4.3 (3.5-5.6cm)Aortic Root3.3 (2.0-3.7cm) PWd1.0 (0.7-1.1cm)Aortic Cusp Exc.2.0 (1.5-2.0cm) LVDs2.4 (2.5-4.0cm) PWs1.9 cm Technically difficult study due to poor acoustic windows. Study quality precludes accurate assessment of regional wall motion. Normal left ventricular chamber size, systolic function and wall motion. Left ventricular ejection fraction estimated to be 55 %. No evidence of ventricular hypertrophy. Anterior Echo-free space, may be due to pericardial fat or effusion. All other cardiac chamber sizes are within normal limits. Mild focal aortic valve sclerosis with adequate cusp excursion. Mildly thickened mitral valve leaflets with normal excursion. Mild mitral annulus and aortic root calcification. Pulmonic valve not well visualized. Normal tricuspid valve structure. IVC is normal in size with physiologic collapse. A color flow and spectral Doppler study was performed and revealed: No aortic regurgitation. Mild mitral regurgitation. Mitral inflow velocities indicates normal left ventricular diastolic function. Mild tricuspid regurgitation. Tricuspid systolic velocities suggests peak right ventricular systolic pressure of 30 mmHg. No pulmonic regurgitation present.
--- NOTE | 2016-10-30 08:19 | Cardiology Report ---
APPROVED REPORT EKG Measurement Heart [id number] Sinus rhythm with 1st degree AV block Septal infarct, age undetermined Abnormal ECG
[2016-10-30] MEDS: Atenolol 25mg tab ORAL SCH (09:31)
[2016-10-30] MEDS: Meclizine 25mg tab ORAL SCH (09:32)
[2016-10-30] MEDS: Digoxin Elixir 0.125mg ORAL SCH (09:32)
--- NOTE | 2016-10-30 11:44 | Diagnostic Imaging Report ---
Clinical Indication: PAIN 86-year-old female with increased vaginal discharge and bleeding Technique: No oral contrast utilized, per emergency room physician request IV administration nonionic contrast. Venous phase spiral acquisition obtained through the abdomen and pelvis. Multiplanar reconstructions were generated. Total dose length product 960 mGycm. CTDIvol(s) 18 mGy. Dose reduction achieved using automated exposure control Comparison: 07/21/2015 noncontrast study, 07/22/2015 pelvic ultrasound Findings: The appendix is not identified, but there are no findings to suggest acute appendicitis. There is colonic diverticulosis. No evidence of diverticulitis. No small bowel distention. No free or loculated intraperitoneal air or fluid is evident. 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 The distal esophagus, stomach are unremarkable. The gallbladder is surgically absent. No biliary ductal dilatation. The liver is unremarkable. The pancreas is somewhat atrophic. The spleen, adrenals, right kidney are unremarkable. The left kidney demonstrates multiple cysts, as well as a lower pole subcentimeter low-attenuation lesion which is too small to characterize. No retroperitoneal or mesenteric mass or adenopathy. The uterus demonstrates a markedly thickened endometrium which appears to be fluid-filled, measuring up to 3 cm thick. There is some surrounding nonspecific myometrial attenuation. The uterine abnormality was described previously, but is more evident on the current contrast study. No adnexal mass. No pelvic adenopathy. The included lung bases are clear. The heart is enlarged. Previously demonstrated pleural effusion is no longer evident There is a fracture of the right posterior lateral ninth rib with callus formation, not evident previously. There is questionably a fracture deformity of the 10th rib which was evident previously. There are degenerative changes of the lumbar spine. There is a compression fracture deformity of the L1 vertebral body, unchanged from previously Impression: Markedly thickened endometrium, as described. Also reported on ultrasound and CT of the year prior. Distention is likely with fluid, but endometrial soft tissue mass not excludable. Further gynecological evaluation recommended. Diverticulosis. No evidence of diverticulitis Subacute fracture of the right posterolateral ninth rib Left renal cysts. Subcentimeter low-attenuation left renal lesion, too small to characterize, most likely a benign simple cyst. No further followup necessary Cardiomegaly Other findings as noted, including degenerative spondylosis, old L1 compression fracture, surgically absent gallbladder, slightly atrophic pancreas, duodenal diverticulum This agrees with the preliminary interpretation provided overnight by Dr. Rigo The CT scanner at [facility] is accredited by the [employer] and the scans are performed using protocols designed to limit radiation exposure to as low as reasonably achievable to attain images of sufficient resolution adequate for diagnostic evaluation.
--- NOTE | 2016-10-30 11:44 | Diagnostic Imaging Report ---
Indication: SOB Technique: One view of the chest Comparison: none Findings: Lungs and pleural spaces are clear. Heart size is borderline enlarged. Previously demonstrated interstitial congestion is no longer evident Impression: No acute process Borderline cardiomegaly
[2016-10-30 12:00] VITALS: BP 133/89
[2016-10-30] MEDS: cefTRIAXone 1 GM in D5W 55 ML IVPB SCH (13:10)
--- NOTE | 2016-10-30 13:17 | Consultation ---
Consult Note Consult Note [id number] YAZ MCCLELLAN M.D. Oct 30, 2016 13:17
[2016-10-30 16:00] VITALS: BP 127/79
--- NOTE | 2016-10-30 16:55 | Cardiology Progress Note ---
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 is nto one routinely used for cardiac condition Subjective Cardiovascular: Denies: chest pain, lightheadedness Respiratory: Reports: shortness of breath Gastrointestinal/Abdominal: Denies: abdominal pain Genitourinary: Denies: burning Objective Last 24 Hour Vital Signs Date Time Temp Pulse Resp B/P Pulse Ox O2 Delivery O2 Flow Rate FiO2 10/30/16 16:37 66 10/30/16 16:00 97.7 80 17 127/79 96 Room Air 82 10/30/16 12:51 62 10/30/16 12:00 97.0 60 18 133/89 99 Room Air 64 10/30/16 09:32 79 10/30/16 09:31 79 132/86 10/30/16 09:30 79 132/86 10/30/16 08:43 59 10/30/16 08:00 96.8 79 17 132/86 99 Room Air 59 10/30/16 07:46 68 18 Room Air 21 10/30/16 04:00 65 10/30/16 03:49 98.7 68 19 143/70 96 Nasal Cannula 2.0 10/30/16 00:03 98.1 76 18 139/81 98 Room Air 10/30/16 00:00 54 10/29/16 22:22 59 138/67 10/29/16 20:07 98.7 59 19 138/67 96 Nasal Cannula 2.0 10/29/16 20:00 56 10/29/16 19:59 62 18 Room Air 21 General Appearance: alert Neck: supple Cardiovascular: normal rate, regular rhythm Respiratory/Chest: crackles/rales Abdomen: normal bowel sounds, non tender, soft Extremities: no swelling Intake and Output 10/29/16 10/30/16 19:00 07:00 Intake Total 875 ml 100 ml Balance 875 ml 100 ml Intake Oral 720 ml IV Total 155 ml 100 ml # Voids 4 3 # Bowel Movements 2 Laboratory Tests Test 10/30/16 06:10 White Blood Count 7.5 K/UL (4.8-10.8) Red Blood Count 3.95 M/UL (4.20-5.40) L Hemoglobin 12.2 G/DL (12.0-16.0) Hematocrit 37.0 % (37.0-47.0) Mean Corpuscular Volume 94 FL (80-99) Mean Corpuscular Hemoglobin 31.0 PG (27.0-31.0) Mean Corpuscular Hemoglobin Concent 33.1 G/DL (32.0-36.0) Red Cell Distribution Width 12.0 % (11.6-14.8) Platelet Count 341 K/UL (150-450) Mean Platelet Volume 5.7 FL (6.5-10.1) L Neutrophils (%) (Auto) 66.4 % (45.0-75.0) Lymphocytes (%) (Auto) 21.8 % (20.0-45.0) Monocytes (%) (Auto) 7.0 % (1.0-10.0) Eosinophils (%) (Auto) 4.0 % (0.0-3.0) H Basophils (%) (Auto) 0.8 % (0.0-2.0) Sodium Level 142 mEQ/L (135-145) Potassium Level 4.3 mEQ/L (3.4-4.9) Chloride Level 106 mEQ/L (98-107) Carbon Dioxide Level 20 mEQ/L (20-30) Anion Gap 16 (5-15) H Blood Urea Nitrogen 24 mg/dL (7-23) H Creatinine 1.1 mg/dL (0.5-0.9) H Estimat Glomerular Filtration Rate mL/min (>60) Glucose Level 91 mg/dL (74-106) Calcium Level 8.9 mg/dL (8.6-10.2) Troponin I < 0.30 ng/mL (<=0.30) Microbiology Date/Time Source Procedure Growth Status 10/28/16 12:50 Blood Blood Culture - Preliminary NO GROWTH AFTER 24 HOURS Resulted 10/28/16 12:40 Blood Blood Culture - Preliminary NO GROWTH AFTER 24 HOURS Resulted ANSHU BHATT 13, 2017 16:55
--- NOTE | 2016-10-30 17:18 | Diagnostic Imaging Report ---
Indications: Postmenopausal vaginal bleeding Technique: Transabdominal and transvaginal real-time grayscale and duplex Doppler imaging of the pelvis was performed. Findings: Comparison: Pelvic and transvaginal ultrasound 3 4016 Uterus measures 7.6 x 5.3 x 3.9cm. the endometrial echo complex remains enlarged and heterogeneous with regular endometrial thickening as well as distended fluid/debris-filled endometrial canal, suggestion of one or more nodular echogenic, possibly calcified masses within. Cervix unremarkable.. No free fluid is present in the cul-de-sac. Right ovary not identified. No extra-ovarian abnormality is seen. Left ovary not identified. No extra-ovarian abnormality is seen. IMPRESSION: Persistent enlargement and heterogeneity of endometrial echo complex. Again, neoplasm must be excluded. Nonvisualization of ovaries
--- NOTE | 2016-10-30 18:01 | Internal Med Progress Note ---
Subjective Date of Service: Oct 30, 2016 Physician Name Johnson,New Attending Physician Star Santamaria MD Current Medications Medications (Trade) Dose Ordered Sig/Sarah Route PRN Reason Start Time Stop Time Status Last Admin Dose Admin Acetaminophen (Tylenol) 650 mg Q4H PRN ORAL FEVER 10/28/16 14:00 11/27/16 13:59 Albuterol/ Ipratropium (DuoNeb 0.5-3(2.5)mg/3ml) 3 ml Q4H PRN HHN Shortness of Breath 10/28/16 14:00 11/02/16 13:59 Alprazolam (Xanax) 0.25 mg QHS ORAL 10/28/16 21:00 11/04/16 20:59 10/29/16 22:22 Amlodipine Besylate (Norvasc) 10 mg Q12HR ORAL 10/28/16 21:00 11/27/16 20:59 10/30/16 09:30 Atenolol (Tenormin) 25 mg DAILY ORAL 10/28/16 15:00 11/27/16 14:59 10/30/16 09:31 Digoxin (Lanoxin) 0.125 mg DAILY ORAL 10/29/16 09:00 11/28/16 08:59 10/30/16 09:32 Diltiazem HCl (Cardizem) 10 mg Q1H PRN IV heart rate more than 120, 10/28/16 14:00 11/27/16 13:59 Enalaprilat (Vasotec) 2.5 mg Q6H PRN IV sbp more than 160 10/28/16 14:00 11/27/16 13:59 Levothyroxine Sodium (Synthroid) 88 mcg ACBREAKFAST ORAL 10/31/16 06:30 11/30/16 06:29 Levothyroxine Sodium (Synthroid) 100 mcg ACBREAKFAST ORAL 10/29/16 06:30 11/28/16 06:29 10/30/16 06:02 Meclizine HCl (Antivert) 25 mg DAILY ORAL 10/29/16 09:00 11/28/16 08:59 10/30/16 09:32 Morphine Sulfate (Morphine Sulfate) 2 mg Q4H PRN IVP severe Pain (Pain Scale 7-10) 10/28/16 14:00 11/04/16 13:59 Nitroglycerin (Ntg) 0.4 mg Q5M PRN SL Prn Chest Pain 10/28/16 14:00 11/27/16 13:59 Ondansetron HCl (Zofran) 4 mg Q6H PRN IVP Nausea & Vomiting 10/28/16 14:00 11/27/16 13:59 Pantoprazole (Protonix) 40 mg DAILY ORAL 10/29/16 09:00 11/28/16 08:59 10/30/16 09:31 Polyethylene Glycol (Miralax) 17 gm DAILYPRN PRN ORAL Constipation 10/28/16 14:00 11/27/16 13:59 Allergies: Coded Allergies: No Known Allergies (Unverified , 07/21/15) ROS Limited/Unobtainable: No Constitutional: Reports: no symptoms HEENT: Reports: no symptoms Cardiovascular: Reports: no symptoms Respiratory: Reports: no symptoms Gastrointestinal/Abdominal: Reports: no symptoms Genitourinary: Reports: no symptoms Neurologic/Psychiatric: Reports: no symptoms Subjective 86 YO F admitted with post - menopausal vaginal bleeding. Await CT abdomen and pelvis result. Await NEPHROLOGY SOCIAL WORKER consult. Cover for Int Med-Dr Santamaria. Objective Last Vital Signs Date Time Temp Pulse Resp B/P Pulse Ox O2 Delivery O2 Flow Rate FiO2 10/30/16 16:37 66 10/30/16 16:00 97.7 17 127/79 96 Room Air 10/30/16 07:46 21 10/30/16 03:49 2.0 Laboratory Tests Test 10/30/16 06:10 White Blood Count 7.5 K/UL (4.8-10.8) Red Blood Count 3.95 M/UL (4.20-5.40) L Hemoglobin 12.2 G/DL (12.0-16.0) Hematocrit 37.0 % (37.0-47.0) Mean Corpuscular Volume 94 FL (80-99) Mean Corpuscular Hemoglobin 31.0 PG (27.0-31.0) Mean Corpuscular Hemoglobin Concent 33.1 G/DL (32.0-36.0) Red Cell Distribution Width 12.0 % (11.6-14.8) Platelet Count 341 K/UL (150-450) Mean Platelet Volume 5.7 FL (6.5-10.1) L Neutrophils (%) (Auto) 66.4 % (45.0-75.0) Lymphocytes (%) (Auto) 21.8 % (20.0-45.0) Monocytes (%) (Auto) 7.0 % (1.0-10.0) Eosinophils (%) (Auto) 4.0 % (0.0-3.0) H Basophils (%) (Auto) 0.8 % (0.0-2.0) Sodium Level 142 mEQ/L (135-145) Potassium Level 4.3 mEQ/L (3.4-4.9) Chloride Level 106 mEQ/L (98-107) Carbon Dioxide Level 20 mEQ/L (20-30) Anion Gap 16 (5-15) H Blood Urea Nitrogen 24 mg/dL (7-23) H Creatinine 1.1 mg/dL (0.5-0.9) H Estimat Glomerular Filtration Rate mL/min (>60) Glucose Level 91 mg/dL (74-106) Calcium Level 8.9 mg/dL (8.6-10.2) Troponin I < 0.30 ng/mL (<=0.30) Microbiology Date/Time Source Procedure Growth Status 10/28/16 12:50 Blood Blood Culture - Preliminary NO GROWTH AFTER 24 HOURS Resulted 10/28/16 12:40 Blood Blood Culture - Preliminary NO GROWTH AFTER 24 HOURS Resulted Intake and Output 10/29/16 10/30/16 19:00 07:00 Intake Total 875 ml 100 ml Balance 875 ml 100 ml Intake Oral 720 ml IV Total 155 ml 100 ml # Voids 4 3 # Bowel Movements 2 Objective General: alert, cooperative, no distress, appears stated age Head: normocephalic, without obvious abnormality, atraumatic Eyes: conjunctivae/corneas clear. PERRL, EOM's intact Throat: lips, mucosa, and tongue normal. MMM Neck: supple, symmetrical, trachea midline, and no JVD Lungs: clear to auscultation bilaterally Heart: regular rate and rhythm, S1, S2 normal, no murmur, click, rub or gallop Abdomen: soft, non-tender, non-distended, bowel sounds normal; no masses or organomegaly Extremities: extremities normal, atraumatic, no cyanosis or edema Pulses: 2+ and symmetric Skin: skin color, texture, turgor normal; no rashes or lesions Neurologic: grossly normal, no focal deficits Assessment/Plan Problem List: (1) Hypothyroidism Assessment & Plan: Cont levoxyl. (2) Vaginal bleeding Assessment & Plan: Postmenopausal. Await NEPHROLOGY SOCIAL WORKER consult and CT abdomen/pelvis. (3) Hypertension Assessment & Plan: Cont amlodipine and atenolol. (4) Vaginitis (5) UTI (urinary tract infection) Assessment & Plan: continue ceftriaxone. (6) Anemia Assessment & Plan: Hold 2 units PRBC for possible transfusion. (7) Endometrial hyperplasia Assessment & Plan: Await drapery installer consult. Needs endometrial biopsy. Status: not improved Assessment/Plan Await NEPHROLOGY SOCIAL WORKER consult. [place] Oct 30, 2016 18:01
--- NOTE | 2016-10-30 19:15 | Consultation ---
DATE OF CONSULTATION: INFECTIOUS DISEASE CONSULTATION CONSULTING PHYSICIAN: Chidi Lopez M.D. REQUESTING PHYSICIAN: Davi Segundo M.D. REASON FOR CONSULTATION: Evaluation of the patient for possible PID. HISTORY OF PRESENT ILLNESS: The patient is an 86-year-old female, who reportedly was admitted with pelvic pain. There is a history of vaginal bleeding according to other providers, however, according to nurse, the patient has not had any vaginal bleeding during this admission. A CT scan of the abdomen showed thickened endometrium and diverticulosis. Infectious Disease consultation has been requested for further evaluation of the patient and antibiotic management. PAST MEDICAL HISTORY: 1. The patient is legally blind. 2. History of . 3. Hypertension. 4. History right knee surgery. MEDICATIONS: The patient is on Rocephin. ALLERGIES: No known drug allergies. PHYSICAL EXAMINATION: VITAL SIGNS: Temperature 97 degrees, blood pressure 132/89, pulse 86, and respiratory rate 18. HEENT: Mild conjunctivae. No icterus. NECK: No lymphadenopathy. CHEST: Bilateral air entry. No crackles or wheezes. HEART: S1 and S2. ABDOMEN: Soft. The patient has mild right lower abdominal pain. No rebound. GYNECOLOGIC: Deferred, however, the patient and the nurse denying having any discharge or bleeding. NEUROLOGIC: Awake and alert. LABORATORY AND DIAGNOSTIC DATA: WBC 7.5, hemoglobin 12 and platelets 241,000. BUN 24 and creatinine 1.1. ALT, AST and alkaline phosphatase unremarkable. CT scan of the abdomen as mentioned above. Chest x-ray, no acute process. ASSESSMENT: The patient is an 86-year-old female who came with lower abdominal pain. The patient mentioned it is usual, bilateral, but however on exam, the patient has mild tenderness in the left right lower quadrant. The patient does not have fever or leukocytosis. No vaginal discharge. At this time, CT scan also does not show any evidence of pelvic inflammatory disease. PLAN: 1. We will discontinue antibiotic treatment and recommended a PAYROLL MASTER evaluation. 2. Monitor culture. 3. Monitor CBC. 4. Based on the patient's clinical course and laboratories, we will do further recommendation. Thank you, Dr. Segundo, for allowing me to participate in the care of this patient. I will follow the patient with you during this hospitalization. Chidi Lopez M.D. DR: NICHOLE JOB#: [id number] CC:
--- NOTE | 2016-10-30 19:21 | Pulmonology Progress Note ---
Assessment/Plan Problems: (1) Dyspnea (2) Congestive cardiac failure (3) Vaginal bleeding (4) Pelvic infection in female (5) Hypertension (6) Endometrial hyperplasia Assessment/Plan cxr bnp in am respiratory treatment check cultures echo reviewed Tsh mildly elevated, Endo consult social workers note appreciated pt/ot Subjective ROS Limited/Unobtainable: No Interval Events: episode of shortness of breath Allergies: Coded Allergies: No Known Allergies (Unverified , 07/21/15) Objective Last 24 Hour Vital Signs Date Time Temp Pulse Resp B/P Pulse Ox O2 Delivery O2 Flow Rate FiO2 10/30/16 16:37 66 10/30/16 16:00 97.7 80 17 127/79 96 Room Air 82 10/30/16 12:51 62 10/30/16 12:00 97.0 60 18 133/89 99 Room Air 64 10/30/16 09:32 79 10/30/16 09:31 79 132/86 10/30/16 09:30 79 132/86 10/30/16 08:43 59 10/30/16 08:00 96.8 79 17 132/86 99 Room Air 59 10/30/16 07:46 68 18 Room Air 21 10/30/16 04:00 65 10/30/16 03:49 98.7 68 19 143/70 96 Nasal Cannula 2.0 10/30/16 00:03 98.1 76 18 139/81 98 Room Air 10/30/16 00:00 54 10/29/16 22:22 59 138/67 10/29/16 20:07 98.7 59 19 138/67 96 Nasal Cannula 2.0 10/29/16 20:00 56 10/29/16 19:59 62 18 Room Air 21 Intake and Output 10/29/16 10/30/16 19:00 07:00 Intake Total 875 ml 100 ml Balance 875 ml 100 ml Intake Oral 720 ml IV Total 155 ml 100 ml # Voids 4 3 # Bowel Movements 2 General Appearance: WD/WN HEENT: normocephalic, atraumatic Respiratory/Chest: crackles/rales Breasts: no masses Cardiovascular: normal peripheral pulses Abdomen: normal bowel sounds, soft, non tender Genitourinary: normal external genitalia Extremities: no cyanosis, no clubbing Microbiology Date/Time Source Procedure Growth Status 10/28/16 12:50 Blood Blood Culture - Preliminary NO GROWTH AFTER 24 HOURS Resulted 10/28/16 12:40 Blood Blood Culture - Preliminary NO GROWTH AFTER 24 HOURS Resulted Laboratory Tests 10/30/16 06:10: White Blood Count 7.5, Red Blood Count 3.95L, Hemoglobin 12.2, Hematocrit 37.0, Mean Corpuscular Volume 94, Mean Corpuscular Hemoglobin 31.0, Mean Corpuscular Hemoglobin Concent 33.1, Red Cell Distribution Width 12.0, Platelet Count 341, Mean Platelet Volume 5.7L, Neutrophils (%) (Auto) 66.4, Lymphocytes (%) (Auto) 21.8, Monocytes (%) (Auto) 7.0, Eosinophils (%) (Auto) 4.0H, Basophils (%) (Auto ) 0.8, Sodium Level 142, Potassium Level 4.3, Chloride Level 106, Carbon Dioxide Level 20, Anion Gap 16H, Blood Urea Nitrogen 24H, Creatinine 1.1H, Estimat Glomerular Filtration Rate , Glucose Level 91, Calcium Level 8.9, Troponin I < 0.30 Current Medications Medications (Trade) Dose Ordered Sig/Sarah Route PRN Reason Start Time Stop Time Status Last Admin Dose Admin Acetaminophen (Tylenol) 650 mg Q4H PRN ORAL FEVER 10/28/16 14:00 11/27/16 13:59 Albuterol/ Ipratropium (DuoNeb 0.5-3(2.5)mg/3ml) 3 ml Q4H PRN HHN Shortness of Breath 10/28/16 14:00 11/02/16 13:59 Alprazolam (Xanax) 0.25 mg QHS ORAL 10/28/16 21:00 11/04/16 20:59 10/29/16 22:22 Amlodipine Besylate (Norvasc) 10 mg Q12HR ORAL 10/28/16 21:00 11/27/16 20:59 10/30/16 09:30 Atenolol (Tenormin) 25 mg DAILY ORAL 10/28/16 15:00 11/27/16 14:59 10/30/16 09:31 Digoxin (Lanoxin) 0.125 mg DAILY ORAL 10/29/16 09:00 11/28/16 08:59 10/30/16 09:32 Diltiazem HCl (Cardizem) 10 mg Q1H PRN IV heart rate more than 120, 10/28/16 14:00 11/27/16 13:59 Enalaprilat (Vasotec) 2.5 mg Q6H PRN IV sbp more than 160 10/28/16 14:00 11/27/16 13:59 Levothyroxine Sodium (Synthroid) 88 mcg ACBREAKFAST ORAL 10/31/16 06:30 11/30/16 06:29 Levothyroxine Sodium (Synthroid) 100 mcg ACBREAKFAST ORAL 10/29/16 06:30 11/28/16 06:29 10/30/16 06:02 Meclizine HCl (Antivert) 25 mg DAILY ORAL 10/29/16 09:00 11/28/16 08:59 10/30/16 09:32 Morphine Sulfate (Morphine Sulfate) 2 mg Q4H PRN IVP severe Pain (Pain Scale 7-10) 10/28/16 14:00 11/04/16 13:59 Nitroglycerin (Ntg) 0.4 mg Q5M PRN SL Prn Chest Pain 10/28/16 14:00 11/27/16 13:59 Ondansetron HCl (Zofran) 4 mg Q6H PRN IVP Nausea & Vomiting 10/28/16 14:00 11/27/16 13:59 Pantoprazole (Protonix) 40 mg DAILY ORAL 10/29/16 09:00 11/28/16 08:59 10/30/16 09:31 Polyethylene Glycol (Miralax) 17 gm DAILYPRN PRN ORAL Constipation 10/28/16 14:00 11/27/16 13:59 MARA DANIEL Oct 30, 2016 19:21
[2016-10-30 20:00] VITALS: BP 134/73
[2016-10-30] MEDS: ALPRAZolam 0.25mg tab ORAL SCH (21:16)
--- NOTE | 2016-10-30 22:00 | Geriatric Medicine Prog Note ---
NOTE: VERY POOR AUDIO SUBJECTIVE: Patient . OBJECTIVE: VITAL SIGNS: Blood pressure 130/89, pulse 60, respirations 18, and temperature . LABORATORY DATA: CBC, . ASSESSMENT: 1. Subclinical hypothyroidism. 2. Obesity. PLAN: . Boyd Watkins M.D. DR: ALEX JOB#: [id number] CC:
[2016-10-31] VITALS: BP 136/59
[2016-10-31 04:00] VITALS: BP 132/70
[2016-10-31 07:57] VITALS: BP 134/56
[2016-10-31 08:02] LABS: BASOPHILS % (AUTO) 1.1 % (0.0-2.0); EOSINOPHILS % (AUTO) 4.2 % (0.0-3.0); LYMPHOCYTES % (AUTO) 22.7 % (20.0-45.0); MEAN CORPUSCULAR HEMOGLOBIN 31.6 PG (27.0-31.0); MEAN CORPUSCULAR VOLUME 93 FL (80-99); MEAN PLATELET VOLUME 5.6 FL (6.5-10.1); MONOCYTES % (AUTO) 6.2 % (1.0-10.0); NEUTROPHILS % (AUTO) 65.8 % (45.0-75.0); PLATELET COUNT 406 K/UL (150-450); RED BLOOD COUNT 4.45 M/UL (4.20-5.40); RED CELL DISTRIBUTION WIDTH 11.5 % (11.6-14.8); WHITE BLOOD COUNT 8.5 K/UL (4.8-10.8)
[2016-10-31 08:21] LABS: ANION GAP 19 (5-15); CALCIUM 9.3 mg/dL (8.6-10.2); CARBON DIOXIDE 19 mEQ/L (20-30); CHLORIDE 101 mEQ/L (98-107); CREATININE 1.1 mg/dL (0.5-0.9); HEMOLYSIS 2; MAGNESIUM 2.2 mg/dL (1.7-2.5); POTASSIUM 4.2 mEQ/L (3.4-4.9); SODIUM 139 mEQ/L (135-145)
[2016-10-31] MEDS: Atenolol 25mg tab ORAL SCH (08:41)
[2016-10-31] MEDS: Meclizine 25mg tab ORAL SCH (08:41)
[2016-10-31] MEDS: Digoxin Elixir 0.125mg ORAL SCH (08:42)
[2016-10-31 11:33] VITALS: BP 143/63
--- NOTE | 2016-10-31 11:40 | Internal Med Progress Note ---
Subjective Date of Service: Oct 31, 2016 Physician Name Johnson,New Attending Physician Star Santamaria MD Current Medications Medications (Trade) Dose Ordered Sig/Sarah Route PRN Reason Start Time Stop Time Status Last Admin Dose Admin Acetaminophen (Tylenol) 650 mg Q4H PRN ORAL FEVER 10/28/16 14:00 11/27/16 13:59 Albuterol/ Ipratropium (DuoNeb 0.5-3(2.5)mg/3ml) 3 ml Q4H PRN HHN Shortness of Breath 10/28/16 14:00 11/02/16 13:59 Alprazolam (Xanax) 0.25 mg QHS ORAL 10/28/16 21:00 11/04/16 20:59 10/30/16 21:16 Amlodipine Besylate (Norvasc) 10 mg Q12HR ORAL 10/28/16 21:00 11/27/16 20:59 10/31/16 08:41 Atenolol (Tenormin) 25 mg DAILY ORAL 10/28/16 15:00 11/27/16 14:59 10/31/16 08:41 Digoxin (Lanoxin) 0.125 mg DAILY ORAL 10/29/16 09:00 11/28/16 08:59 10/31/16 08:42 Diltiazem HCl (Cardizem) 10 mg Q1H PRN IV heart rate more than 120, 10/28/16 14:00 11/27/16 13:59 Enalaprilat (Vasotec) 2.5 mg Q6H PRN IV sbp more than 160 10/28/16 14:00 11/27/16 13:59 Levothyroxine Sodium (Synthroid) 88 mcg ACBREAKFAST ORAL 10/31/16 06:30 11/30/16 06:29 10/31/16 06:05 Levothyroxine Sodium (Synthroid) 100 mcg ACBREAKFAST ORAL 10/29/16 06:30 11/28/16 06:29 10/31/16 06:06 Meclizine HCl (Antivert) 25 mg DAILY ORAL 10/29/16 09:00 11/28/16 08:59 10/31/16 08:41 Morphine Sulfate (Morphine Sulfate) 2 mg Q4H PRN IVP severe Pain (Pain Scale 7-10) 10/28/16 14:00 11/04/16 13:59 Nitroglycerin (Ntg) 0.4 mg Q5M PRN SL Prn Chest Pain 10/28/16 14:00 11/27/16 13:59 Ondansetron HCl (Zofran) 4 mg Q6H PRN IVP Nausea & Vomiting 10/28/16 14:00 11/27/16 13:59 Pantoprazole (Protonix) 40 mg DAILY ORAL 10/29/16 09:00 11/28/16 08:59 10/31/16 08:41 Polyethylene Glycol (Miralax) 17 gm DAILYPRN PRN ORAL Constipation 10/28/16 14:00 11/27/16 13:59 Allergies: Coded Allergies: No Known Allergies (Unverified , 07/21/15) ROS Limited/Unobtainable: No Constitutional: Reports: no symptoms HEENT: Reports: no symptoms Cardiovascular: Reports: no symptoms Respiratory: Reports: no symptoms Gastrointestinal/Abdominal: Reports: no symptoms Genitourinary: Reports: no symptoms Neurologic/Psychiatric: Reports: no symptoms Subjective 86 YO F admitted with post - menopausal vaginal bleeding. Await LEGISLATIVE DIRECTOR consult. Cover for Int Med-Dr Santamaria. Objective Last Vital Signs Date Time Temp Pulse Resp B/P Pulse Ox O2 Delivery O2 Flow Rate FiO2 10/31/16 11:33 97.1 59 18 143/63 95 Room Air 10/31/16 07:22 2.0 28 Laboratory Tests Test 10/30/16 21:00 10/31/16 07:30 Carcinoembryonic Antigen 2.1 ng/mL CA 15-3 Antigen Pending CA 19-9 Antigen 3.51 U/mL (< 37) CA 27.29 Pending CA 125 Antigen Pending White Blood Count 8.5 K/UL (4.8-10.8) Red Blood Count 4.45 M/UL (4.20-5.40) Hemoglobin 14.0 G/DL (12.0-16.0) Hematocrit 41.3 % (37.0-47.0) Mean Corpuscular Volume 93 FL (80-99) Mean Corpuscular Hemoglobin 31.6 PG (27.0-31.0) H Mean Corpuscular Hemoglobin Concent 34.0 G/DL (32.0-36.0) Red Cell Distribution Width 11.5 % (11.6-14.8) L Platelet Count 406 K/UL (150-450) Mean Platelet Volume 5.6 FL (6.5-10.1) L Neutrophils (%) (Auto) 65.8 % (45.0-75.0) Lymphocytes (%) (Auto) 22.7 % (20.0-45.0) Monocytes (%) (Auto) 6.2 % (1.0-10.0) Eosinophils (%) (Auto) 4.2 % (0.0-3.0) H Basophils (%) (Auto) 1.1 % (0.0-2.0) Sodium Level 139 mEQ/L (135-145) Potassium Level 4.2 mEQ/L (3.4-4.9) Chloride Level 101 mEQ/L (98-107) Carbon Dioxide Level 19 mEQ/L (20-30) L Anion Gap 19 (5-15) H Blood Urea Nitrogen 26 mg/dL (7-23) H Creatinine 1.1 mg/dL (0.5-0.9) H Estimat Glomerular Filtration Rate mL/min (>60) Glucose Level 96 mg/dL (74-106) Calcium Level 9.3 mg/dL (8.6-10.2) Magnesium Level 2.2 mg/dL (1.7-2.5) Pro-B-Type Natriuretic Peptide 455 pg/mL (0-450) H Microbiology Date/Time Source Procedure Growth Status 10/28/16 12:50 Blood Blood Culture - Preliminary NO GROWTH AFTER 48 HOURS Resulted 10/28/16 12:40 Blood Blood Culture - Preliminary NO GROWTH AFTER 48 HOURS Resulted Intake and Output 10/30/16 10/31/16 19:00 07:00 Intake Total 515 ml 120 ml Output Total 1600 ml Balance -1085 ml 120 ml Intake Oral 460 ml 120 ml IV Total 55 ml Output Urine Total 1600 ml # Voids 3 1 # Bowel Movements 2 1 Objective General: alert, cooperative, no distress, appears stated age Head: normocephalic, without obvious abnormality, atraumatic Eyes: conjunctivae/corneas clear. PERRL, EOM's intact Throat: lips, mucosa, and tongue normal. MMM Neck: supple, symmetrical, trachea midline, and no JVD Lungs: clear to auscultation bilaterally Heart: regular rate and rhythm, S1, S2 normal, no murmur, click, rub or gallop Abdomen: soft, non-tender, non-distended, bowel sounds normal; no masses or organomegaly Extremities: extremities normal, atraumatic, no cyanosis or edema Pulses: 2+ and symmetric Skin: skin color, texture, turgor normal; no rashes or lesions Neurologic: grossly normal, no focal deficits Assessment/Plan Problem List: (1) Hypothyroidism Assessment & Plan: Cont levoxyl. (2) Vaginal bleeding Assessment & Plan: Postmenopausal. Await LEGISLATIVE DIRECTOR consult. CT abdomen/pelvis= endometrial hyperplasia. (3) Hypertension Assessment & Plan: Cont amlodipine and atenolol. (4) Vaginitis (5) UTI (urinary tract infection) Assessment & Plan: continue ceftriaxone. (6) Anemia Assessment & Plan: Hold 2 units PRBC for possible transfusion. (7) Endometrial hyperplasia Assessment & Plan: Give the age of the patient; uterine cancer is high on the differential. Await block sorter consult. Needs endometrial biopsy. Status: not improved Assessment/Plan Await LEGISLATIVE DIRECTOR consult. [place] Oct 31, 2016 11:40
--- NOTE | 2016-10-31 12:29 | Pulmonology Progress Note ---
Assessment/Plan Problems: (1) Dyspnea (2) Congestive cardiac failure (3) Vaginal bleeding (4) Pelvic infection in female (5) Hypertension (6) Endometrial hyperplasia Assessment/Plan improving respiratory treatment check cultures echo reviewed social workers note appreciated pt/ot all noted ok to dc to [facility] in [place] as requested by pt's grandson Subjective ROS Limited/Unobtainable: No Constitutional: Reports: no symptoms HEENT: Repors: no symptoms Respiratory: Reports: no symptoms Allergies: Coded Allergies: No Known Allergies (Unverified , 07/21/15) Objective Last 24 Hour Vital Signs Date Time Temp Pulse Resp B/P Pulse Ox O2 Delivery O2 Flow Rate FiO2 10/31/16 11:33 97.1 59 18 143/63 95 Room Air 10/31/16 08:42 70 10/31/16 08:41 70 134/56 10/31/16 08:41 70 134/56 10/31/16 08:00 66 10/31/16 07:57 96.6 70 18 134/56 94 Room Air 10/31/16 07:22 72 18 Nasal Cannula 2.0 28 10/31/16 07:22 Nasal Cannula 2.0 28 10/31/16 07:22 97 Nasal Cannula 2.0 28 10/31/16 04:00 57 10/31/16 04:00 97.9 68 22 132/70 96 Room Air 10/31/16 00:00 98.0 60 20 136/59 97 Room Air 10/31/16 00:00 56 10/30/16 21:16 62 134/73 10/30/16 20:00 60 10/30/16 20:00 97.9 88 21 134/73 97 Nasal Cannula 2.0 10/30/16 19:30 95 Nasal Cannula 2.0 28 10/30/16 19:30 Nasal Cannula 2.0 28 10/30/16 19:30 80 18 Nasal Cannula 2.0 28 10/30/16 16:37 66 10/30/16 16:00 97.7 80 17 127/79 96 Room Air 82 10/30/16 12:51 62 Intake and Output 10/30/16 10/31/16 19:00 07:00 Intake Total 515 ml 120 ml Output Total 1600 ml Balance -1085 ml 120 ml Intake Oral 460 ml 120 ml IV Total 55 ml Output Urine Total 1600 ml # Voids 3 1 # Bowel Movements 2 1 Objective General Appearance: WD/WN Lines, tubes and drains: peripheral HEENT: normocephalic, atraumatic Neck: non-tender, normal alignment Respiratory/Chest: chest wall non-tender, lungs clear Cardiovascular/Chest: normal peripheral pulses Abdomen: normal bowel sounds Genitourinary/Rectal: normal genital exam Extremities: trace edema Microbiology Date/Time Source Procedure Growth Status 10/28/16 12:50 Blood Blood Culture - Preliminary NO GROWTH AFTER 48 HOURS Resulted 10/28/16 12:40 Blood Blood Culture - Preliminary NO GROWTH AFTER 48 HOURS Resulted Laboratory Tests 10/30/16 21:00: Carcinoembryonic Antigen 2.1, CA 15-3 Antigen [Pending], CA 19-9 Antigen 3.51, CA 27.29 [Pending], CA 125 Antigen [Pending] 10/31/16 07:30: White Blood Count 8.5, Red Blood Count 4.45, Hemoglobin 14.0, Hematocrit 41.3, Mean Corpuscular Volume 93, Mean Corpuscular Hemoglobin 31.6H, Mean Corpuscular Hemoglobin Concent 34.0, Red Cell Distribution Width 11.5L, Platelet Count 406, Mean Platelet Volume 5.6L, Neutrophils (%) (Auto) 65.8, Lymphocytes (%) (Auto) 22.7, Monocytes (%) (Auto) 6.2, Eosinophils (%) (Auto) 4.2H, Basophils (%) (Auto ) 1.1, Sodium Level 139, Potassium Level 4.2, Chloride Level 101, Carbon Dioxide Level 19L, Anion Gap 19H, Blood Urea Nitrogen 26H, Creatinine 1.1H, Estimat Glomerular Filtration Rate , Glucose Level 96, Calcium Level 9.3, Magnesium Level 2.2, Pro-B-Type Natriuretic Peptide 455H Current Medications Medications (Trade) Dose Ordered Sig/Sarah Route PRN Reason Start Time Stop Time Status Last Admin Dose Admin Acetaminophen (Tylenol) 650 mg Q4H PRN ORAL FEVER 10/28/16 14:00 11/27/16 13:59 Albuterol/ Ipratropium (DuoNeb 0.5-3(2.5)mg/3ml) 3 ml Q4H PRN HHN Shortness of Breath 10/28/16 14:00 11/02/16 13:59 Alprazolam (Xanax) 0.25 mg QHS ORAL 10/28/16 21:00 11/04/16 20:59 10/30/16 21:16 Amlodipine Besylate (Norvasc) 10 mg Q12HR ORAL 10/28/16 21:00 11/27/16 20:59 10/31/16 08:41 Atenolol (Tenormin) 25 mg DAILY ORAL 10/28/16 15:00 11/27/16 14:59 10/31/16 08:41 Digoxin (Lanoxin) 0.125 mg DAILY ORAL 10/29/16 09:00 11/28/16 08:59 10/31/16 08:42 Diltiazem HCl (Cardizem) 10 mg Q1H PRN IV heart rate more than 120, 10/28/16 14:00 11/27/16 13:59 Enalaprilat (Vasotec) 2.5 mg Q6H PRN IV sbp more than 160 10/28/16 14:00 11/27/16 13:59 Levothyroxine Sodium (Synthroid) 88 mcg ACBREAKFAST ORAL 10/31/16 06:30 11/30/16 06:29 10/31/16 06:05 Levothyroxine Sodium (Synthroid) 100 mcg ACBREAKFAST ORAL 10/29/16 06:30 11/28/16 06:29 10/31/16 06:06 Meclizine HCl (Antivert) 25 mg DAILY ORAL 10/29/16 09:00 11/28/16 08:59 10/31/16 08:41 Morphine Sulfate (Morphine Sulfate) 2 mg Q4H PRN IVP severe Pain (Pain Scale 7-10) 10/28/16 14:00 11/04/16 13:59 Nitroglycerin (Ntg) 0.4 mg Q5M PRN SL Prn Chest Pain 10/28/16 14:00 11/27/16 13:59 Ondansetron HCl (Zofran) 4 mg Q6H PRN IVP Nausea & Vomiting 10/28/16 14:00 11/27/16 13:59 Pantoprazole (Protonix) 40 mg DAILY ORAL 10/29/16 09:00 11/28/16 08:59 10/31/16 08:41 Polyethylene Glycol (Miralax) 17 gm DAILYPRN PRN ORAL Constipation 10/28/16 14:00 11/27/16 13:59 MARA DANIEL Oct 31, 2016 12:29
[2016-10-31 16:11] VITALS: BP 153/62
--- NOTE | 2016-10-31 19:09 | Cardiology Progress Note ---
Assessment/Plan Assessment/Plan vag bleedign uti htn multiple fall dyspnea echo normal systolic anc diastolic function home soon not clear to me whys she is on anticoagulation pt indicates has falledn multiple time as question if anticoag will be safe senior living samuel dose of anticontagion is nto one routinely used for cardiac condition Subjective Cardiovascular: Reports: no symptoms Objective Last 24 Hour Vital Signs Date Time Temp Pulse Resp B/P Pulse Ox O2 Delivery O2 Flow Rate FiO2 10/31/16 16:11 98.2 64 18 153/62 95 Room Air 10/31/16 12:00 86 10/31/16 11:33 97.1 59 18 143/63 95 Room Air 10/31/16 08:42 70 10/31/16 08:41 70 134/56 10/31/16 08:41 70 134/56 10/31/16 08:00 66 10/31/16 07:57 96.6 70 18 134/56 94 Room Air 10/31/16 07:22 72 18 Nasal Cannula 2.0 28 10/31/16 07:22 Nasal Cannula 2.0 28 10/31/16 07:22 97 Nasal Cannula 2.0 28 10/31/16 04:00 57 10/31/16 04:00 97.9 68 22 132/70 96 Room Air 10/31/16 00:00 98.0 60 20 136/59 97 Room Air 10/31/16 00:00 56 10/30/16 21:16 62 134/73 10/30/16 20:00 60 10/30/16 20:00 97.9 88 21 134/73 97 Nasal Cannula 2.0 10/30/16 19:30 95 Nasal Cannula 2.0 28 10/30/16 19:30 Nasal Cannula 2.0 28 10/30/16 19:30 80 18 Nasal Cannula 2.0 28 General Appearance: no apparent distress, alert Intake and Output 10/30/16 10/31/16 19:00 07:00 Intake Total 515 ml 120 ml Output Total 1600 ml Balance -1085 ml 120 ml Intake Oral 460 ml 120 ml IV Total 55 ml Output Urine Total 1600 ml # Voids 3 1 # Bowel Movements 2 1 Laboratory Tests Test 10/30/16 21:00 10/31/16 07:30 Carcinoembryonic Antigen 2.1 ng/mL CA 15-3 Antigen Pending CA 19-9 Antigen 3.51 U/mL (< 37) CA 27.29 Pending CA 125 Antigen Pending White Blood Count 8.5 K/UL (4.8-10.8) Red Blood Count 4.45 M/UL (4.20-5.40) Hemoglobin 14.0 G/DL (12.0-16.0) Hematocrit 41.3 % (37.0-47.0) Mean Corpuscular Volume 93 FL (80-99) Mean Corpuscular Hemoglobin 31.6 PG (27.0-31.0) H Mean Corpuscular Hemoglobin Concent 34.0 G/DL (32.0-36.0) Red Cell Distribution Width 11.5 % (11.6-14.8) L Platelet Count 406 K/UL (150-450) Mean Platelet Volume 5.6 FL (6.5-10.1) L Neutrophils (%) (Auto) 65.8 % (45.0-75.0) Lymphocytes (%) (Auto) 22.7 % (20.0-45.0) Monocytes (%) (Auto) 6.2 % (1.0-10.0) Eosinophils (%) (Auto) 4.2 % (0.0-3.0) H Basophils (%) (Auto) 1.1 % (0.0-2.0) Sodium Level 139 mEQ/L (135-145) Potassium Level 4.2 mEQ/L (3.4-4.9) Chloride Level 101 mEQ/L (98-107) Carbon Dioxide Level 19 mEQ/L (20-30) L Anion Gap 19 (5-15) H Blood Urea Nitrogen 26 mg/dL (7-23) H Creatinine 1.1 mg/dL (0.5-0.9) H Estimat Glomerular Filtration Rate mL/min (>60) Glucose Level 96 mg/dL (74-106) Calcium Level 9.3 mg/dL (8.6-10.2) Magnesium Level 2.2 mg/dL (1.7-2.5) Pro-B-Type Natriuretic Peptide 455 pg/mL (0-450) H ANSHU BHATT 14, 2017 19:09
--- NOTE | 2016-10-31 22:30 | Consultation ---
DATE OF CONSULTATION: 10/31/2016 GYNECOLOGICAL CONSULTATION HISTORY OF PRESENT ILLNESS: The patient is an 86-year-old female who presents with the chief complaint of vaginal bleeding. According to the patient, she noted bleeding few days prior to admission and it was the reason for the BEE[employer] consult. The patient started to have menopause at age 50. She is 2 para 2. She was twice. She denies STD. She denies pelvic inflammatory disease. She denies any gynecological problems in the past. MEDICAL HISTORY: She denies any surgeries, but cholecystectomy and knee surgery. MEDICAL PROBLEMS: Include hypertension and hypothyroidism. SOCIAL HISTORY: She is retired. She does not smoke. She does not drink. REVIEW OF SYSTEMS: Noncontributory. PHYSICAL EXAMINATION: GENERAL: The patient is well developed and well nourished female, in no acute distress. VITAL SIGNS: Stable. SKIN: No lesions. BREASTS: Normal. Nipples without discharge. ABDOMEN: Soft and nontender. Costovertebral angle is nontender. PELVIC: within normal limits. Vagina, no lesions. Cervix, unable to palpate either it was surgery on the cervix, the patient does not remember. The uterus is small. No adnexal masses. There is no trace of blood in the vagina. LABORATORY AND DIAGNOSTIC DATA: Her ultrasound revealed abnormal appearance of the uterus, which more likely is related to the previous fibroid tumor. IMPRESSION: 1. No vaginal bleeding or any blood in the vagina. 2. Hypertension. 3. Hypothyroidism. 4. History of diverticulosis. At this moment, for any current surgical procedure and the new episode of vaginal bleeding starts, but it has to be identified by physicians in the emergency room or iron assorter. Paula Hancock M.D. DR: RIGO JOB#: [id number] CC:
--- NOTE | 2016-11-01 10:30 | Discharge Summary ---
Discharge Summary Hospital Course Date of Admission Oct 28, 2016 at 12:54 Date of Discharge Oct 31, 2016 at 19:40 Admitting Diagnosis CHF,PID HPI Sisi Barbosa is a 86 year old female who was admitted on Oct 28, 2016 at 12:54 for Congestive Heart Failure/Pelvic Inflammatory Hospital Course [id number] Discharge Discharge Disposition Patient was discharged to SNF/Subacute Facility(03) Discharge Diagnoses: Mary Alice Bull NP Nov 01, 2016 10:30
--- NOTE | 2016-11-01 22:30 | Discharge Summary 2 SIG ---
DATE OF ADMISSION: 10/28/2016 DATE OF DISCHARGE: 10/31/2016 ATTENDING PHYSICIAN: Star Santamaria M.D. CONSULTANTS: 1. Davi Segundo M.D. 2. Paula Hancock M.D. 3. Brenden Dye M.D. 4. Chidi Lopez M.D. BRIEF HOSPITAL COURSE: The patient is an 86-year-old white female, came in with a chief complaint of vaginal bleeding that began few days prior to admission. The patient has been on Xarelto at home and noted vaginal bleed. On evaluation at ED, examination was consistent with pelvic infection and was started on IV ceftriaxone. She was then admitted for further evaluation and management of vaginal bleed. Abdominal and pelvic CAT scan showed a markedly thickened endometrium. No evidence of diverticulitis. The patient has been on Xarelto, however, unclear for anticoagulation indication, as she usually takes Xarelto at 10 mg daily. Her EKG showed sinus rhythm with normal QRS and nonspecific T-wave changes. She underwent an echocardiogram that showed ejection fraction 55% with no significant valvular regurgitation. There is normal left ventricular diastolic function. She was seen by Infectious Disease specialist and was taken off antibiotics as the patient did not have any fever or leukocytosis and CAT scan findings did not show any evidence of pelvic inflammatory disease. She underwent transvaginal ultrasound that showed persistent enlargement and heterogenicity of the endometrial complex. On evaluation by Gynecology, aeronautics teacher pelvic exam was within normal limits. Uterus is small and no adnexal mass palpated and there is no trace of blood in the vagina. She was cleared for discharge and was eventually discharged to SNF per daughter request. FINAL DIAGNOSES: 1. Postmenopausal vaginal bleed. 2. Vaginitis. 3. Urinary tract infection. 4. Endometrial hyperplasia. 5. Hypertension. 6. Multiple falls. 7. Hypothyroidism. Davi Segundo M.D. I have been assigned to dictate discharge summary on this account and I was not involved in the patient's management. Mary Alice Bull N.P. DR: BERYL JOB#: [id number] CC:
[2016-11-02 15:44] LABS: CA 125 25.9 U/mL (0.0-38.1); CA 27.29 21.3 U/mL (0.0-38.6); CA15-3 21.3 U/mL (0.0-25.0)
== END 2016-10-31 19:40 | DRG 760 ==
LOC: EMR 12:26 → EDBEDREQ 12:39 → 2E 12:54 → EDBEDREQ 13:29 → 2E 22:40
DX: N95.0 Postmenopausal bleeding (principal); N39.0 Urinary tract infection, site not specified; I50.9 Heart failure, unspecified; I10 Essential (primary) hypertension; E03.9 Hypothyroidism, unspecified; Z79.01 Long term (current) use of anticoagulants; K57.90 Diverticulosis of intestine, part unspecified, without perforation or abscess without bleeding; N76.0 Acute vaginitis; N85.00 Endometrial hyperplasia, unspecified; Z91.81 History of falling; Z86.73 Personal history of transient ischemic attack (TIA), and cerebral infarction without residual deficits; H54.8 Legal blindness, as defined in USA; D64.9 Anemia, unspecified
CPT/HCPCS: 36415; 71010; 74177; 76830; 76856; 80048; 80053; 80061; 82378; 82550; 82553; 83605; 83735; 83880; 84443; 84484; 85025; 85610; 85730; 86140; 86300; 86301; 86304; 86850; 86900; 86901; 87040; 93005; 93306; 94664; 94760